=== PATIENT | female | born 1960 | race Caucasian/White ===

== ENCOUNTER 2016-08-11 12:18 | Inpatient (IN) | payer MEDICAID ==
[2016-08-11 12:45] VITALS: BMI 26.3
[2016-08-11] MEDS ORDERED: PREVNAR 13 IM ONE ×2 (12:46→14:03)
[2016-08-11] MEDS ORDERED: AFLURIA IM ONE ×2 (12:46→14:03)
[2016-08-11] MEDS ORDERED: LEVAQUIN PREMIX IV 500 MG 500 MG/100 ML BAG IV ONE (13:31)
[2016-08-11] MEDS: NS 1000 ML 1,000 ML IV SCH (14:10)
[2016-08-11] MEDS ORDERED: PROVENTIL NEB TX 0.083% 2.5MG/ 3ML NEB PRN (14:43)
[2016-08-11] MEDS: KLONOPIN TAB 0.5 MG PO SCH ×2 (14:53→21:31)
[2016-08-11] MEDS: MORPHINE SULFATE INJ 2 MG IVP PRN ×2 (14:53→21:29)
[2016-08-11] MEDS: PLAVIX PO SCH ×2 (14:53→14:58)
[2016-08-11 14:58] LABS: BASOPHILS % (AUTO) 0.3 % (0.2-1.0); HEMOGLOBIN 14.2 g/dL (12.0-16.0); LYMPHOCYTES # (AUTO) 3.3 X10^3/uL (1.3-2.9)
[2016-08-11 15:00] LABS: BASOPHILS # (AUTO) 0.1 X10^3/uL (0.0-0.1); HEMATOCRIT 42.5 % (36.0-47.0); LYMPHOCYTES % (AUTO) 19.3 % (21.0-51.0); MEAN CORPUSCULAR HEMOGLOBIN 30.7 pg (27.0-34.0); MEAN CORPUSCULAR HGB CONC 33.5 g/dL (33.0-35.0); MEAN CORPUSCULAR VOLUME 91.8 fL (80.0-100.0); MEAN PLATELET VOLUME 8.2 fL (7.4-11.0); MONOCYTES # (AUTO) 1.5 x10^3/uL (0.3-0.8); MONOCYTES % (AUTO) 8.6 % (0.0-13.0); NEUTROPHILS # (AUTO) 12.2 x10^3/uL (2.2-4.8); NEUTROPHILS % (AUTO) 71.8 % (42.0-75.0); PLATELET COUNT 396 X10^3/uL (150.0-450.0); RED BLOOD COUNT 4.63 X10^6/uL (3.5-5.4); RED CELL DISTRIBUTION WIDTH 13.3 % (11.6-16.5)
[2016-08-11 15:17] LABS: ALANINE AMINOTRANSFERASE 22 Units/L (12-78); ALBUMIN 4.4 g/dL (3.4-5.0); ALKALINE PHOSPHATASE 89 Units/L (46-116); ASPARTATE AMINO TRANSFERASE 19 Units/L (15-37); BLOOD UREA NITROGEN 16 mg/dL (7-18); CALCIUM 9.9 mg/dL (8.5-10.1); CARBON DIOXIDE 25.7 mmol/L (21-32); CHLORIDE 98 mmol/L (98-107); COR NA(FOR HYPERGLY) 140 mmol/L (136-145); CREATININE 1.18 mg/dL (0.55-1.02); GLUCOSE 142 mg/dL (65-99); SODIUM 139 mmol/L (136-145); TOTAL PROTEIN 9.2 g/dL (6.4-8.2); eGFR BLACK RACES > 60 (>60); eGFR NON BLACK RACES 50 (>60)
--- NOTE | 2016-08-11 17:30 | DR.H&P ---
H&P - History & Physical for Day of: H&P Date: 08/11/16 - Chief Complaint Chief Complaint: WEAKNESS, SOB, COUGHING, N/V - Allergies Allergies/Adverse Reactions: Allergies Allergy/AdvReac Type Severity Reaction Status Date / Time Penicillins Allergy Verified 08/10/16 14:34 - History of Present Illness History of Present Illness: 55 WF DIRECT ADMIT FROM DR REDMAN OFFICE AFTER CO N/V, SOB, BRONCHITIS LIKE SYMPTOMS FOR SEVERAL DAYS. PT WENT TO ER LAST PM HAD CT CHEST AND LABS. PT WBC WERE 14K IN ED LAST PM. PT HAS PMH OF COPD, HTN, CAD, DM AND RENAL INSUFF. PT WAS ADMITTED FOR EVALUATION AND TREATMENT FOR FAILED OP TREATMENT OF AB/COPD EXACERBATION. PLAN TO OBTAIN LABS, BLOOD AND SPUTUM CULTURES, IV ATBX THERAPY, RESP THERAPY AND MONITOR. PT HAD RENAL MASS SEEN ON CTA DONE ON 08/10/2016, PLAN TO CT ABD PELVIS Q AM. PT STATES SHE "HAS HAD MASS FOR SEVERAL YEARS, WAS TOLD IS WASNT CANCER" PT DOESNT RECALL BIOPSY OR PHYSICIAN'S NAME. - Past Medical History Past Medical History: Arthritis, COPD, Depression, Diabetes, Dyslipidemia, GERD , Hypertension, Renal Disease - Past Surgical History Surgical History: HAIR WORKER Surgery - Family History Family Medical History: Diabetes Mellitus, Coronary Artery Disease, Hypertension - Social History Does patient currently use any type of tobacco product: Yes Have you used tobacco products in the last 12 months: Yes Type of Tobacco Use: Cigarettes How many years tobacco product used: 48 Does any household member use tobacco: No Alcohol Use: None Drug Use: None - Review of Systems Constitutional: Weakness Eyes: No Symptoms Reported ENT: No Symptoms Reported Respiratory: Cough, Shortness of Breath, Wheezing Cardiovascular: No Symptoms Reported Gastrointestinal: Nausea, Vomiting, Abdominal Pain Genitourinary: No Symptoms Reported Musculoskeletal: Back Pain Skin: No Symptoms Reported Neurological: No Symptoms Reported - Physical Exam Vital Signs: Pulse Rate [Bilateral Radial] 89 Pulse Rate 73 Respiratory Rate 16 Blood Pressure [Right Arm] 140/82 Blood Pressure [Left Arm] 150/83 Blood Pressure 192/87 O2 Sat by Pulse Oximetry 98 Oriented: Normal Eyes: Normal Ear: Normal Nose: Normal Throat: Normal Respiratory: Rhonchi Throughout Cardiovascular: Normal : Normal Auscultation: Bowel Sounds: Normal Palpation: Normal Tenderness: RLQ Skin: Normal Musculoskeletal: Back:Thoracic, Back:Lumbar Psychiatric: Depression Speech Pattern: Clear, Appropriate - Assessment/Plan (1) Acute bronchitis Qualifiers: Bronchitis organism: B Status: Acute Plan: ADMIT, CXR Q AM. IV LEVAQUIN, RESP THERAPY. O2, SPUTUM AND BC, IV HYDRATION (2) N&V (nausea and vomiting) Qualifiers: Vomiting type: V Vomiting Intractability: V Status: Acute Plan: NAUSEA CONTROL, IV HYDRAITON (3) Diabetes Qualifiers: Diabetes mellitus type: D Diabetes mellitus complication status: D Diabetes mellitus complication detail: D Diabetic retinopathy severity: D Proliferative retinopathy type: P Diabetes mellitus macular edema: D Diabetes mellitus oysterman insulin use: D Laterality: L Chronic kidney disease stage: C Status: Acute Plan: SSI, HOLD METFORMIN (4) HTN (hypertension) Qualifiers: Hypertension type: H Status: Acute Plan: CONTINUED HOME MEDS, MONITOR (5) Renal mass Status: Acute Plan: CT ABD/PELVIS WITH CONTRAST, REPEAT AM LABS
[2016-08-11] MEDS ORDERED: PATIENT'S HOME MEDICATION RESPIRATORY (Atorvastatin Calcium [Lipitor] 80 MG) PO SCH (21:00)
[2016-08-11] MEDS: PULMICORT NEB TX 0.5 MG NEB SCH (21:12)
[2016-08-11] MEDS: TOPROL XL PO SCH (21:37)
[2016-08-11 22:20] LABS: BILIRUBIN,URINE NEGATIVE (NEGATIVE); BLOOD/HEMOGLOBIN,URINE 2+ (NEGATIVE); GLUCOSE, URINE NEGATIVE (NEGATIVE); KETONES,URINE NEGATIVE (NEGATIVE); LEUKOCYTE ESTERASE ,URINE NEGATIVE (NEGATIVE); NITRITES,URINE NEGATIVE (NEGATIVE); PROTEIN,URINE 2+ (NEGATIVE); UROBILINOGEN,URINE NORMAL (NORMAL)
[2016-08-11 22:28] LABS: APPEARANCE,URINE CLEAR (CLEAR); COLOR,URINE DARK YELLOW (YELLOW)
[2016-08-11 22:29] LABS: AMORPHOUS SEDIMENT,UR TRACE /HPF (NEGATIVE); BACTERIA,URINE 1+ /HPF (NEGATIVE); MUCUS,URINE MODERATE /HPF (NEGATIVE); SQUAMOUS EPITHELIAL CELL,UR MODERATE /HPF (NEGATIVE)
[2016-08-12] MEDS: NS 1000 ML 1,000 ML IV SCH ×2 (03:30→15:57)
[2016-08-12 05:41] LABS: BASOPHILS # (AUTO) 0.1 X10^3/uL (0.0-0.1); BASOPHILS % (AUTO) 0.5 % (0.2-1.0); EOSINOPHILS # (AUTO) 0.1 x10^3/uL (0.0-0.2); EOSINOPHILS % (AUTO) 0.6 % (0.9-2.9); HEMATOCRIT 36.5 % (36.0-47.0); HEMOGLOBIN 12.1 g/dL (12.0-16.0); LYMPHOCYTES # (AUTO) 3.6 X10^3/uL (1.3-2.9); LYMPHOCYTES % (AUTO) 31.6 % (21.0-51.0); MEAN CORPUSCULAR HEMOGLOBIN 30.7 pg (27.0-34.0); MEAN CORPUSCULAR HGB CONC 33.1 g/dL (33.0-35.0); MEAN PLATELET VOLUME 8.1 fL (7.4-11.0); MONOCYTES # (AUTO) 1.2 x10^3/uL (0.3-0.8); MONOCYTES % (AUTO) 10.7 % (0.0-13.0); NEUTROPHILS # (AUTO) 6.5 x10^3/uL (2.2-4.8); NEUTROPHILS % (AUTO) 56.6 % (42.0-75.0); PLATELET COUNT 277 X10^3/uL (150.0-450.0); RED BLOOD COUNT 3.93 X10^6/uL (3.5-5.4); RED CELL DISTRIBUTION WIDTH 13.4 % (11.6-16.5); WHITE BLOOD COUNT 11.5 X10^3/uL (3.6-10.0)
[2016-08-12 05:51] LABS: ALANINE AMINOTRANSFERASE 19 Units/L (12-78); ALBUMIN 3.3 g/dL (3.4-5.0); ALKALINE PHOSPHATASE 70 Units/L (46-116); ASPARTATE AMINO TRANSFERASE 19 Units/L (15-37); BLOOD UREA NITROGEN 20 mg/dL (7-18); CALCIUM 8.8 mg/dL (8.5-10.1); CARBON DIOXIDE 25.6 mmol/L (21-32); CHLORIDE 106 mmol/L (98-107); COR CA(FOR HYPOALB) 9.4 mg/dL (8.5-10.1); CREATININE 0.97 mg/dL (0.55-1.02); GLUCOSE 82 mg/dL (65-99); SODIUM 143 mmol/L (136-145); TOTAL PROTEIN 7.1 g/dL (6.4-8.2); eGFR BLACK RACES > 60 (>60); eGFR NON BLACK RACES > 60 (>60)
--- NOTE | 2016-08-12 07:29 | RAD ---
HISTORY: Cough, congestion Study: Chest one view Comparison: August 10, 2016 Findings: The heart is enlarged. No congestive heart failure is noted. Mela are normal. The lungs are mildly h yperinflated but free of acute infiltrates. No pleural effusions are identified. The bony thorax is unremarkable. IMPRESSION: Cardiomegaly without congestive heart failure Lungs hyperinflated but free of acute infiltrates Reported By:
[2016-08-12] MEDS: MORPHINE SULFATE INJ 2 MG IVP PRN ×3 (08:41→21:21)
[2016-08-12] MEDS: CELEXA PO SCH (08:42)
[2016-08-12] MEDS: KLONOPIN TAB 0.5 MG PO SCH ×2 (08:42→23:02)
[2016-08-12] MEDS: TOPROL XL PO SCH ×2 (08:42→23:04)
[2016-08-12] MEDS: ZESTRIL TAB 10 MG PO SCH (08:42)
[2016-08-12] MEDS: PLAVIX PO SCH (08:42)
[2016-08-12] MEDS: PULMICORT NEB TX 0.5 MG NEB SCH ×2 (08:52→21:02)
[2016-08-12] MEDS: LIPITOR TAB 40 MG PO SCH ×2 (08:56→23:03)
[2016-08-12] MEDS: ZOFRAN INJ 4 MG VIAL IVP PRN ×2 (09:57→21:21)
[2016-08-12] MEDS: PHENERGAN INJ 25 MG IV PRN ×3 (10:47→23:22)
[2016-08-12] MEDS ORDERED: NS 25 ML IV 50 ML IV ONE (11:09)
--- NOTE | 2016-08-12 12:54 | CT ---
HISTORY: ABN CHEST CTA ON 08/10/16. REPORT RECOMMENDS RENAL PROTOCOL. CHARGE NURSE NAREN CINTRON STATES PT HAS BEEN SEEING AN COAT OPERATOR SINCE 2013 AND HE IS AWARE OF RENAL MASS. PER CHARGE NURSE THE PT WAS TOLD BY COAT OPERATOR IT IS NOTHING TO WORRY ABOUT/ PT STATES HAS N/V/ WEAKNESS Study: CT abdomen and pelvis with contrast Comparison: None Technique: Multiple axial images of the abdomen and pelvis were obtained from the lung bases to the pubic symph ysis with IV contrast. Oral contrast was administered. Dose reduction techniques including Automate d Exposure Control (AEC) and adjustment of mA and kV were utilized. Findings: The visualized portions of the lung bases are unremarkable. The spleen, pancreas, liver, and gallbl adder are unremarkable. There is a 1.7 cm right adrenal nodule that enhances on post-contrast images . This lesion measures 17 Hounsfield units on the precontrast exam and up to 109 Hounsfield units on the venous phase images. There is a right upper pole renal mass noted measuring 7.9 x 7.6 x 8.1 cm in transverse, AP, and craniocaudal dimensions. This mass is heterogeneous in density averaging 25 H elsel units on precontrast imaging and 30 Hounsfield units on the arterial phase suggesting mild enh ancement. There is very thin peripheral calcification. There are no definite solid nodular component s appreciated. The left kidney is normal. There are renal vascular calcifications bilaterally. No hy dronephrosis. No free intraperitoneal air. No evidence of intestinal obstruction or inflammation. Normal appendix. No free fluid. There are scattered colonic diverticula seen without evidence of acute inflammation. Oral contrast transits into the large bowel. The soft tissues and osseous structures are unremarkable. There is moderate to advanced atherosclero tic disease of the aorta and branch vessels. No pathologically enlarged lymph nodes are identified. The uterus is removed. Normal urinary bladder. IMPRESSION: 1. Right upper pole renal mass measuring 7.9 x 7.6 x 8.1 cm with very minimal enhancement seen on th e arterial phase images. No definite solid nodular components. There appears to be thin peripheral c alcification within the wall suggesting this could represent a complex cyst, at minimum a Bosniak gr gurwinder 3. Continued surveillance is recommended. 2. There is a 1.7 cm enhancing right adrenal nodule that is of indeterminate etiology. Continued att ention on followup is recommended. If clinically warranted, further characterization of this lesion with contrast enhanced MRI could be performed that could also serve to further characterize the reina l lesion. Reported By:
--- NOTE | 2016-08-12 13:25 | PCM.PROG ---
Progress Note - Progress Note for Day of Date: 08/19/16 - Subjective Subjective: COUGH IMPROVING, CONTINUED NAUSEA, WEAKNESS - Past Medical Family Social History Past Med/Fam/Surg Hx: No changes since H&P Allergies: Allergies Penicillins Allergy (Verified 08/10/16 14:34) - Review of Systems ROS: No change since H&P - Vital Signs and I&O's Vital Signs: Temperature 98.0 F Pulse Rate [Left Brachial] 72 Pulse Rate [Right Brachial] 68 Pulse Rate [Bilateral Radial] 89 Pulse Rate 72 Respiratory Rate 18 Blood Pressure [Right Arm] 128/66 Blood Pressure [Left Arm] 155/71 Blood Pressure 192/87 O2 Sat by Pulse Oximetry 98 Intake and Output: Intake & Output 08/10/16 08/11/16 08/12/16 08/13/16 11:59 11:59 11:59 11:59 Intake Total 1375 Output Total 300 Balance 1075 - Physical Exam Oriented: Normal Eyes: Normal Ear: Normal Nose: Normal Throat: Normal Respiratory: Wheezes Cardiovascular: Normal : Normal Auscultation: Bowel Sounds: Normal Tenderness: RLQ Skin: Normal Musculoskeletal: Back:Thoracic, Back:Lumbar Psychiatric: Depression Speech Pattern: Clear, Appropriate - Laboratory and Diagnostics Result Diagrams: 08/12/16 04:30 08/12/16 04:30 Labs: Laboratory WBC 11.5 X10^3/uL (3.6-10.0) H 08/12/16 04:30 RBC 3.93 X10^6/uL (3.5-5.4) 08/12/16 04:30 Hgb 12.1 g/dL (12.0-16.0) 08/12/16 04:30 Hct 36.5 % (36.0-47.0) 08/12/16 04:30 MCV 93.0 fL (80.0-100.0) 08/12/16 04:30 MCH 30.7 pg (27.0-34.0) 08/12/16 04:30 MCHC 33.1 g/dL (33.0-35.0) 08/12/16 04:30 RDW 13.4 % (11.6-16.5) 08/12/16 04:30 Plt Count 277 X10^3/uL (150.0-450.0) 08/12/16 04:30 MPV 8.1 fL (7.4-11.0) 08/12/16 04:30 Neut % 56.6 % (42.0-75.0) 08/12/16 04:30 Lymph % 31.6 % (21.0-51.0) 08/12/16 04:30 [place] % 10.7 % (0.0-13.0) 08/12/16 04:30 Eos % 0.6 % (0.9-2.9) L 08/12/16 04:30 Baso % 0.5 % (0.2-1.0) 08/12/16 04:30 Neut # 6.5 x10^3/uL (2.2-4.8) H 08/12/16 04:30 Lymph # 3.6 X10^3/uL (1.3-2.9) H 08/12/16 04:30 [place] # 1.2 x10^3/uL (0.3-0.8) H 08/12/16 04:30 Eos # 0.1 x10^3/uL (0.0-0.2) 08/12/16 04:30 Baso # 0.1 X10^3/uL (0.0-0.1) 08/12/16 04:30 Absolute Nucleated RBC 0.0 /100WBC 08/12/16 04:30 Sodium 143 mmol/L (136-145) 08/12/16 04:30 Corrected Sodium TNP 08/12/16 04:30 Potassium 3.6 mmol/L (3.5-5.1) 08/12/16 04:30 Chloride 106 mmol/L (98-107) 08/12/16 04:30 Carbon Dioxide 25.6 mmol/L (21-32) 08/12/16 04:30 BUN 20 mg/dL (7-18) H 08/12/16 04:30 Creatinine 0.97 mg/dL (0.55-1.02) 08/12/16 04:30 Est GFR (MDRD) Af Amer > 60 (>60) 08/12/16 04:30 Est GFR (MDRD) Non-Af > 60 (>60) 08/12/16 04:30 Glucose 82 mg/dL (65-99) 08/12/16 04:30 Calcium 8.8 mg/dL (8.5-10.1) 08/12/16 04:30 Corrected Calcium 9.4 mg/dL (8.5-10.1) 08/12/16 04:30 Total Bilirubin 0.50 mg/dL (0.2-1.0) 08/12/16 04:30 AST 19 Units/L (15-37) 08/12/16 04:30 ALT 19 Units/L (12-78) 08/12/16 04:30 Alkaline Phosphatase 70 Units/L (46-116) 08/12/16 04:30 Total Protein 7.1 g/dL (6.4-8.2) 08/12/16 04:30 Albumin 3.3 g/dL (3.4-5.0) L 08/12/16 04:30 Globulin 3.8 g/dL (2.5-4.5) 08/12/16 04:30 Albumin/Globulin Ratio 0.9 Ratio (1.1-2.1) L 08/12/16 04:30 Specimen Type Clean catch urine 08/11/16 22:08 Urine Color Dark yellow (YELLOW) 08/11/16 22:08 Urine Appearance Clear (CLEAR) 08/11/16 22:08 Urine pH 5.0 (5.0 - 8.0) 08/11/16 22:08 Ur Specific [place] 1.020 (1.000-1.030) 08/11/16 22:08 Urine Protein 2+ (NEGATIVE) 08/11/16 22:08 Urine Glucose (UA) Negative (NEGATIVE) 08/11/16 22:08 Urine Ketones Negative (NEGATIVE) 08/11/16 22:08 Urine Occult Blood 2+ (NEGATIVE) 08/11/16 22:08 Urine Nitrite Negative (NEGATIVE) 08/11/16 22:08 Urine Bilirubin Negative (NEGATIVE) 08/11/16 22:08 Urine Urobilinogen Normal (NORMAL) 08/11/16 22:08 Ur Leukocyte Esterase Negative (NEGATIVE) 08/11/16 22:08 Urine RBC 3-4 /HPF (NEGATIVE) 08/11/16 22:08 Urine WBC 0-1 /HPF (NEGATIVE) 08/11/16 22:08 Ur Squamous Epith Cells Moderate /HPF (NEGATIVE) 08/11/16 22:08 Amorphous Sediment Trace /HPF (NEGATIVE) 08/11/16 22:08 Urine Bacteria 1+ /HPF (NEGATIVE) 08/11/16 22:08 Urine Mucus Moderate /HPF (NEGATIVE) 08/11/16 22:08 Ur Culture Indicated? No/not indicated 08/11/16 22:08 - Plan (1) Acute bronchitis Status: Acute Qualifiers: Bronchitis organism: B Plan: IV LEVAQUIN, RESP THERAPY. O2, SPUTUM AND BC, IV HYDRATION ADN REPEAT AM LABS (2) N&V (nausea and vomiting) Status: Acute Qualifiers: Vomiting type: V Vomiting Intractability: V Plan: NAUSEA CONTROL, IV HYDRAITON (3) Diabetes Status: Acute Qualifiers: Diabetes mellitus type: D Diabetes mellitus complication status: D Diabetes mellitus complication detail: D Diabetic retinopathy severity: D Proliferative retinopathy type: P Diabetes mellitus macular edema: D Diabetes mellitus shelter insulin use: D Laterality: L Chronic kidney disease stage: C Plan: SSI, HOLD METFORMIN (4) HTN (hypertension) Status: Acute Qualifiers: Hypertension type: H Plan: CONTINUED HOME MEDS, MONITOR (5) Renal mass Status: Acute Plan: CT ABD/PELVIS WITH CONTRAST THIS AM, MRI WITH CONTRAST RECOMMENDED FOR ENHANCEMENT OF RENAL AND ADRENAL MASS. REPEAT AM LABS
[2016-08-13] MEDS: ZOFRAN INJ 4 MG VIAL IVP PRN (04:33)
[2016-08-13] MEDS: MORPHINE SULFATE INJ 2 MG IVP PRN ×3 (04:36→20:25)
[2016-08-13] MEDS: NS 1000 ML 1,000 ML IV SCH ×3 (04:38→21:54)
[2016-08-13 06:15] LABS: BASOPHILS % (AUTO) 0.3 % (0.2-1.0); EOSINOPHILS % (AUTO) 0.1 % (0.9-2.9); HEMOGLOBIN 14.2 g/dL (12.0-16.0); LYMPHOCYTES # (AUTO) 1.8 X10^3/uL (1.3-2.9); LYMPHOCYTES % (AUTO) 12.9 % (21.0-51.0); MEAN CORPUSCULAR HEMOGLOBIN 30.9 pg (27.0-34.0); MEAN CORPUSCULAR HGB CONC 33.7 g/dL (33.0-35.0); MEAN CORPUSCULAR VOLUME 91.7 fL (80.0-100.0); MEAN PLATELET VOLUME 8.5 fL (7.4-11.0); MONOCYTES # (AUTO) 1.2 x10^3/uL (0.3-0.8); MONOCYTES % (AUTO) 8.6 % (0.0-13.0); NEUTROPHILS # (AUTO) 10.7 x10^3/uL (2.2-4.8); NEUTROPHILS % (AUTO) 78.1 % (42.0-75.0); PLATELET COUNT 297 X10^3/uL (150.0-450.0); RED BLOOD COUNT 4.58 X10^6/uL (3.5-5.4); RED CELL DISTRIBUTION WIDTH 13.1 % (11.6-16.5); WHITE BLOOD COUNT 13.6 X10^3/uL (3.6-10.0)
[2016-08-13] MEDS: TOPROL XL PO SCH ×3 (06:27→21:48)
[2016-08-13] MEDS: PHENERGAN INJ 25 MG IV PRN ×3 (06:30→20:21)
[2016-08-13 06:34] LABS: ALANINE AMINOTRANSFERASE 20 Units/L (12-78); ALBUMIN 3.8 g/dL (3.4-5.0); ALKALINE PHOSPHATASE 87 Units/L (46-116); ASPARTATE AMINO TRANSFERASE 22 Units/L (15-37); BLOOD UREA NITROGEN 14 mg/dL (7-18); CARBON DIOXIDE 24.5 mmol/L (21-32); CHLORIDE 100 mmol/L (98-107); COR NA(FOR HYPERGLY) 140 mmol/L (136-145); CREATININE 0.68 mg/dL (0.55-1.02); GLUCOSE 152 mg/dL (65-99); SODIUM 139 mmol/L (136-145); TOTAL PROTEIN 8.2 g/dL (6.4-8.2); eGFR BLACK RACES > 60 (>60); eGFR NON BLACK RACES > 60 (>60)
[2016-08-13] MEDS: PULMICORT NEB TX 0.5 MG NEB SCH ×2 (08:25→21:09)
[2016-08-13] MEDS: ZESTRIL TAB 10 MG PO SCH (09:43)
[2016-08-13] MEDS: KLONOPIN TAB 0.5 MG PO SCH ×2 (09:44→21:48)
[2016-08-13] MEDS: CELEXA PO SCH (09:44)
[2016-08-13] MEDS: PLAVIX PO SCH (09:44)
--- NOTE | 2016-08-13 14:07 | PCM.PROG ---
Progress Note - Progress Note for Day of Date: 08/13/16 - Subjective Subjective: COUGH IMPROVING, CONTINUED NAUSEA, WEAKNESS. NPO FOR MRI THIS AM - Past Medical Family Social History Past Med/Fam/Surg Hx: No changes since H&P Allergies: Allergies Penicillins Allergy (Verified 08/10/16 14:34) - Review of Systems ROS: No change since H&P - Vital Signs and I&O's Vital Signs: Temperature 98.8 F Pulse Rate [Left Brachial] 110 Pulse Rate [Right Brachial] 68 Pulse Rate [Bilateral Radial] 89 Pulse Rate 78 Respiratory Rate 20 Blood Pressure [Right Arm] 192/108 Blood Pressure [Left Arm] 200/100 Blood Pressure 192/87 O2 Sat by Pulse Oximetry 99 Intake and Output: Intake & Output 08/11/16 08/12/16 08/13/16 08/14/16 11:59 11:59 11:59 11:59 Intake Total 1375 709 Output Total 300 Balance 1075 709 - Physical Exam Oriented: Normal Eyes: Normal Ear: Normal Nose: Normal Throat: Normal Respiratory: Wheezes Cardiovascular: Normal : Normal Auscultation: Bowel Sounds: Normal Tenderness: RLQ, Epigastric Skin: Normal Musculoskeletal: Back:Thoracic, Back:Lumbar Psychiatric: Depression Speech Pattern: Clear, Appropriate - Laboratory and Diagnostics Result Diagrams: 08/13/16 04:55 08/13/16 04:55 Labs: 08/11/16 13:55 Blood Blood Culture - Preliminary 08/11/16 13:55 Blood Blood Culture - Preliminary Laboratory WBC 13.6 X10^3/uL (3.6-10.0) H 08/13/16 04:55 RBC 4.58 X10^6/uL (3.5-5.4) 08/13/16 04:55 Hgb 14.2 g/dL (12.0-16.0) 08/13/16 04:55 Hct 42.0 % (36.0-47.0) 08/13/16 04:55 MCV 91.7 fL (80.0-100.0) 08/13/16 04:55 MCH 30.9 pg (27.0-34.0) 08/13/16 04:55 MCHC 33.7 g/dL (33.0-35.0) 08/13/16 04:55 RDW 13.1 % (11.6-16.5) 08/13/16 04:55 Plt Count 297 X10^3/uL (150.0-450.0) 08/13/16 04:55 MPV 8.5 fL (7.4-11.0) 08/13/16 04:55 Neut % 78.1 % (42.0-75.0) H 08/13/16 04:55 Lymph % 12.9 % (21.0-51.0) L 08/13/16 04:55 [place] % 8.6 % (0.0-13.0) 08/13/16 04:55 Eos % 0.1 % (0.9-2.9) L 08/13/16 04:55 Baso % 0.3 % (0.2-1.0) 08/13/16 04:55 Neut # 10.7 x10^3/uL (2.2-4.8) H 08/13/16 04:55 Lymph # 1.8 X10^3/uL (1.3-2.9) 08/13/16 04:55 [place] # 1.2 x10^3/uL (0.3-0.8) H 08/13/16 04:55 Eos # 0.0 x10^3/uL (0.0-0.2) 08/13/16 04:55 Baso # 0.0 X10^3/uL (0.0-0.1) 08/13/16 04:55 Absolute Nucleated RBC 0.0 /100WBC 08/13/16 04:55 Sodium 139 mmol/L (136-145) 08/13/16 04:55 Corrected Sodium 140 mmol/L (136-145) 08/13/16 04:55 Potassium 3.6 mmol/L (3.5-5.1) 08/13/16 04:55 Chloride 100 mmol/L (98-107) 08/13/16 04:55 Carbon Dioxide 24.5 mmol/L (21-32) 08/13/16 04:55 BUN 14 mg/dL (7-18) 08/13/16 04:55 Creatinine 0.68 mg/dL (0.55-1.02) 08/13/16 04:55 Est GFR (MDRD) Af Amer > 60 (>60) 08/13/16 04:55 Est GFR (MDRD) Non-Af > 60 (>60) 08/13/16 04:55 Glucose 152 mg/dL (65-99) H 08/13/16 04:55 Calcium 9.0 mg/dL (8.5-10.1) 08/13/16 04:55 Corrected Calcium TNP 08/13/16 04:55 Total Bilirubin 0.50 mg/dL (0.2-1.0) 08/13/16 04:55 AST 22 Units/L (15-37) 08/13/16 04:55 ALT 20 Units/L (12-78) 08/13/16 04:55 Alkaline Phosphatase 87 Units/L (46-116) 08/13/16 04:55 Total Protein 8.2 g/dL (6.4-8.2) 08/13/16 04:55 Albumin 3.8 g/dL (3.4-5.0) 08/13/16 04:55 Globulin 4.4 g/dL (2.5-4.5) 08/13/16 04:55 Albumin/Globulin Ratio 0.9 Ratio (1.1-2.1) L 08/13/16 04:55 Specimen Type Clean catch urine 08/11/16 22:08 Urine Color Dark yellow (YELLOW) 08/11/16 22:08 Urine Appearance Clear (CLEAR) 08/11/16 22:08 Urine pH 5.0 (5.0 - 8.0) 08/11/16 22:08 Ur Specific [place] 1.020 (1.000-1.030) 08/11/16 22:08 Urine Protein 2+ (NEGATIVE) 08/11/16 22:08 Urine Glucose (UA) Negative (NEGATIVE) 08/11/16 22:08 Urine Ketones Negative (NEGATIVE) 08/11/16 22:08 Urine Occult Blood 2+ (NEGATIVE) 08/11/16 22:08 Urine Nitrite Negative (NEGATIVE) 08/11/16 22:08 Urine Bilirubin Negative (NEGATIVE) 08/11/16 22:08 Urine Urobilinogen Normal (NORMAL) 08/11/16 22:08 Ur Leukocyte Esterase Negative (NEGATIVE) 08/11/16 22:08 Urine RBC 3-4 /HPF (NEGATIVE) 08/11/16 22:08 Urine WBC 0-1 /HPF (NEGATIVE) 08/11/16 22:08 Ur Squamous Epith Cells Moderate /HPF (NEGATIVE) 08/11/16 22:08 Amorphous Sediment Trace /HPF (NEGATIVE) 08/11/16 22:08 Urine Bacteria 1+ /HPF (NEGATIVE) 08/11/16 22:08 Urine Mucus Moderate /HPF (NEGATIVE) 08/11/16 22:08 Ur Culture Indicated? No/not indicated 08/11/16 22:08 - Plan (1) Acute bronchitis Status: Acute Qualifiers: Bronchitis organism: B Plan: IV LEVAQUIN, RESP THERAPY. O2, SPUTUM AND BC, IV HYDRATION ADN REPEAT AM LABS (2) N&V (nausea and vomiting) Status: Acute Qualifiers: Vomiting type: V Vomiting Intractability: V Plan: NAUSEA CONTROL, IV HYDRAITON (3) Diabetes Status: Acute Qualifiers: Diabetes mellitus type: D Diabetes mellitus complication status: D Diabetes mellitus complication detail: D Diabetic retinopathy severity: D Proliferative retinopathy type: P Diabetes mellitus macular edema: D Diabetes mellitus fdc insulin use: D Laterality: L Chronic kidney disease stage: C Plan: SSI, HOLD METFORMIN (4) HTN (hypertension) Status: Acute Qualifiers: Hypertension type: H Plan: CONTINUED HOME MEDS, MONITOR (5) Renal mass Status: Acute Plan: CT ABD/PELVIS ON PT CHART, MRI WITH CONTRAST RECOMMENDED FOR ENHANCEMENT OF RENAL AND ADRENAL MASS. REPEAT AM LABS
[2016-08-13] MEDS: PROTONIX INJ 40 MG VIAL IVP SCH (16:43)
[2016-08-13] MEDS: LIPITOR TAB 40 MG PO SCH (21:48)
[2016-08-14] MEDS: MORPHINE SULFATE INJ 2 MG IVP PRN ×3 (05:41→16:56)
[2016-08-14] MEDS: PHENERGAN INJ 25 MG IV PRN ×3 (05:41→16:53)
[2016-08-14] MEDS: PULMICORT NEB TX 0.5 MG NEB SCH ×2 (08:54→20:40)
--- NOTE | 2016-08-14 09:14 | MRI ---
MRI OF THE ABDOMEN WITHOUT AND WITH IV CONTRAST Clinical indication: Renal mass Procedure: Multiplanar multi sequence MRI of the abdomen were obtained with and without the administ ration of intravenous contrast according to standard departmental protocol. Contrast: 15 cc of Omniscan rule. Comparisons: CT abdomen pelvis 08/12/2016, 09/14/2015 Findings: MRI of the abdomen without contrast: No significant iron or fat deposition in the liver or spleen. N o significant ascites. MRI of the abdomen with contrast: Liver and spleen are normal in appearance. No focal lesions. Gall bladder is present. No gallstones. No filling defects within the common bile duct. No ductal dilata tion. Pancreas demonstrates normal T1 signal. No pancreatic masses. 1.4 cm right adrenal nodule on s eries 901, image 12 demonstrates mild loss of signal on out of phase imaging. Kidneys demonstrate no rmal cortical medullary differentiation. No hydronephrosis. Redemonstrated arising from the upper po le the right kidney is a intrinsically T1 bright mass measuring 8.6 x 7.8 cm. This is heterogeneous on T-tube. No enhancement. Visualized bowel is unremarkable. No suspicious lymph nodes. Impression: 1. Large T1 bright lesion arising from the upper pole the right kidney. Lack of contrast enhancement suggests benign etiology. Given comparison with CT, differential considerations would be complex, h ighly proteinaceous cyst versus old hemorrhagic cyst with peripheral clots. As this has not changed in size since 09/14/2015, a benign etiology is suspected. This could be followed with ultrasound in 6 months. Reported By:
[2016-08-14] MEDS: TOPROL XL PO SCH ×2 (09:28→21:55)
[2016-08-14] MEDS: PROTONIX INJ 40 MG VIAL IVP SCH (09:28)
[2016-08-14] MEDS: CELEXA PO SCH (09:28)
[2016-08-14] MEDS: ZESTRIL TAB 10 MG PO SCH (09:28)
[2016-08-14] MEDS: KLONOPIN TAB 0.5 MG PO SCH ×2 (09:29→21:55)
[2016-08-14] MEDS: NS 1000 ML 1,000 ML IV SCH (09:29)
[2016-08-14] MEDS: PLAVIX PO SCH (09:29)
[2016-08-14] MEDS: ZOFRAN INJ 4 MG VIAL IVP PRN ×2 (09:38→19:54)
[2016-08-14 17:48] LABS: AMYLASE 74 Units/L (25-115); LIPASE 112 Units/L (73-393)
[2016-08-14] MEDS: LIPITOR TAB 40 MG PO SCH (21:55)
[2016-08-15] MEDS: MORPHINE SULFATE INJ 2 MG IVP PRN ×2 (00:03→06:39)
[2016-08-15] MEDS: PHENERGAN INJ 25 MG IV PRN ×4 (00:03→21:40)
[2016-08-15] MEDS: NS 1000 ML 1,000 ML IV SCH ×2 (00:11→04:33)
[2016-08-15 06:14] LABS: BASOPHILS # (AUTO) 0.1 X10^3/uL (0.0-0.1); BASOPHILS % (AUTO) 0.5 % (0.2-1.0); EOSINOPHILS # (AUTO) 0.1 x10^3/uL (0.0-0.2); EOSINOPHILS % (AUTO) 0.6 % (0.9-2.9); HEMATOCRIT 40.7 % (36.0-47.0); HEMOGLOBIN 13.7 g/dL (12.0-16.0); LYMPHOCYTES # (AUTO) 3.4 X10^3/uL (1.3-2.9); LYMPHOCYTES % (AUTO) 27.6 % (21.0-51.0); MEAN CORPUSCULAR HEMOGLOBIN 30.7 pg (27.0-34.0); MEAN CORPUSCULAR HGB CONC 33.6 g/dL (33.0-35.0); MEAN CORPUSCULAR VOLUME 91.3 fL (80.0-100.0); MEAN PLATELET VOLUME 8.3 fL (7.4-11.0); MONOCYTES # (AUTO) 1.1 x10^3/uL (0.3-0.8); MONOCYTES % (AUTO) 9.1 % (0.0-13.0); NEUTROPHILS # (AUTO) 7.6 x10^3/uL (2.2-4.8); NEUTROPHILS % (AUTO) 62.2 % (42.0-75.0); PLATELET COUNT 259 X10^3/uL (150.0-450.0); RED BLOOD COUNT 4.46 X10^6/uL (3.5-5.4); RED CELL DISTRIBUTION WIDTH 13.1 % (11.6-16.5); WHITE BLOOD COUNT 12.2 X10^3/uL (3.6-10.0)
[2016-08-15 06:35] LABS: ALANINE AMINOTRANSFERASE 21 Units/L (12-78); ALBUMIN 3.4 g/dL (3.4-5.0); ALKALINE PHOSPHATASE 75 Units/L (46-116); ASPARTATE AMINO TRANSFERASE 16 Units/L (15-37); BLOOD UREA NITROGEN 13 mg/dL (7-18); CALCIUM 8.6 mg/dL (8.5-10.1); CARBON DIOXIDE 26.7 mmol/L (21-32); CHLORIDE 104 mmol/L (98-107); COR NA(FOR HYPERGLY) 140 mmol/L (136-145); CREATININE 0.71 mg/dL (0.55-1.02); GLUCOSE 113 mg/dL (65-99); SODIUM 140 mmol/L (136-145); TOTAL PROTEIN 7.1 g/dL (6.4-8.2); eGFR BLACK RACES > 60 (>60); eGFR NON BLACK RACES > 60 (>60)
[2016-08-15] MEDS ORDERED: POTASSIUM CHLORIDE LIQ 20 MEQ UDC PO PRN (07:07)
[2016-08-15] MEDS ORDERED: K-LYTE EFFERVESCENT PO PRN (07:07)
[2016-08-15] MEDS: K-RIDER 10 MEQ/NS 100 ML 10 MEQ/100 ML BAG IV PRN ×3 (07:53→13:28)
[2016-08-15] MEDS: PULMICORT NEB TX 0.5 MG NEB SCH ×2 (09:25→20:31)
[2016-08-15] MEDS: PERCOCET TAB 5/325 MG PO PRN ×3 (12:02→23:54)
[2016-08-15] MEDS: KLONOPIN TAB 0.5 MG PO SCH ×2 (14:33→21:34)
[2016-08-15] MEDS: CELEXA PO SCH (14:33)
[2016-08-15] MEDS: TOPROL XL PO SCH ×2 (14:33→21:34)
[2016-08-15] MEDS: PLAVIX PO SCH (14:34)
[2016-08-15] MEDS: ZESTRIL TAB 10 MG PO SCH (14:34)
[2016-08-15] MEDS: PROTONIX INJ 40 MG VIAL IVP SCH (14:34)
--- NOTE | 2016-08-15 14:55 | PCM.PROG ---
Progress Note - Progress Note for Day of Date: 08/14/16 - Subjective Subjective: WHEEZING AND CHEST CONGESTION MUCH IMPROVED, CONTINUED NAUSEA, WEAKNESS, PLAN FOR HIDA SCAN ON THURSDAY. CONTINUE ADVANCE DIET TOLERATED. - Past Medical Family Social History Past Med/Fam/Surg Hx: No changes since H&P Allergies: Allergies Penicillins Allergy (Verified 08/10/16 14:34) - Review of Systems ROS: No change since H&P - Vital Signs and I&O's Vital Signs: Temperature 98.5 F Pulse Rate [Left Brachial] 81 Pulse Rate [Right Brachial] 68 Pulse Rate [Bilateral Radial] 89 Pulse Rate 70 Respiratory Rate 20 Blood Pressure [Right Arm] 176/94 Blood Pressure [Left Arm] 175/90 Blood Pressure 192/87 O2 Sat by Pulse Oximetry 100 Intake and Output: Intake & Output 08/13/16 08/14/16 08/15/16 08/16/16 11:59 11:59 11:59 11:59 Intake Total 709 1209 2037 Balance 709 1209 2037 - Physical Exam Oriented: Normal Eyes: Normal Ear: Normal Nose: Normal Throat: Normal Respiratory: Wheezes Cardiovascular: Normal : Normal Auscultation: Bowel Sounds: Normal Tenderness: RLQ, Epigastric Skin: Normal Musculoskeletal: Back:Thoracic, Back:Lumbar Psychiatric: Depression Speech Pattern: Clear, Appropriate - Laboratory and Diagnostics Result Diagrams: 08/15/16 04:25 08/15/16 04:25 Labs: 08/11/16 13:55 Blood Blood Culture - Preliminary 08/11/16 13:55 Blood Blood Culture - Preliminary Laboratory WBC 12.2 X10^3/uL (3.6-10.0) H 08/15/16 04:25 RBC 4.46 X10^6/uL (3.5-5.4) 08/15/16 04:25 Hgb 13.7 g/dL (12.0-16.0) 08/15/16 04:25 Hct 40.7 % (36.0-47.0) 08/15/16 04:25 MCV 91.3 fL (80.0-100.0) 08/15/16 04:25 MCH 30.7 pg (27.0-34.0) 08/15/16 04:25 MCHC 33.6 g/dL (33.0-35.0) 08/15/16 04:25 RDW 13.1 % (11.6-16.5) 08/15/16 04:25 Plt Count 259 X10^3/uL (150.0-450.0) 08/15/16 04:25 MPV 8.3 fL (7.4-11.0) 08/15/16 04:25 Neut % 62.2 % (42.0-75.0) 08/15/16 04:25 Lymph % 27.6 % (21.0-51.0) 08/15/16 04:25 [place] % 9.1 % (0.0-13.0) 08/15/16 04:25 Eos % 0.6 % (0.9-2.9) L 08/15/16 04:25 Baso % 0.5 % (0.2-1.0) 08/15/16 04:25 Neut # 7.6 x10^3/uL (2.2-4.8) H 08/15/16 04:25 Lymph # 3.4 X10^3/uL (1.3-2.9) H 08/15/16 04:25 [place] # 1.1 x10^3/uL (0.3-0.8) H 08/15/16 04:25 Eos # 0.1 x10^3/uL (0.0-0.2) 08/15/16 04:25 Baso # 0.1 X10^3/uL (0.0-0.1) 08/15/16 04:25 Absolute Nucleated RBC 0.0 /100WBC 08/15/16 04:25 Sodium 140 mmol/L (136-145) 08/15/16 04:25 Corrected Sodium 140 mmol/L (136-145) 08/15/16 04:25 Potassium 2.9 mmol/L (3.5-5.1) L* 08/15/16 04:25 Chloride 104 mmol/L (98-107) 08/15/16 04:25 Carbon Dioxide 26.7 mmol/L (21-32) 08/15/16 04:25 BUN 13 mg/dL (7-18) 08/15/16 04:25 Creatinine 0.71 mg/dL (0.55-1.02) 08/15/16 04:25 Est GFR (MDRD) Af Amer > 60 (>60) 08/15/16 04:25 Est GFR (MDRD) Non-Af > 60 (>60) 08/15/16 04:25 Glucose 113 mg/dL (65-99) H 08/15/16 04:25 Calcium 8.6 mg/dL (8.5-10.1) 08/15/16 04:25 Corrected Calcium TNP 08/15/16 04:25 Total Bilirubin 0.70 mg/dL (0.2-1.0) 08/15/16 04:25 AST 16 Units/L (15-37) 08/15/16 04:25 ALT 21 Units/L (12-78) 08/15/16 04:25 Alkaline Phosphatase 75 Units/L (46-116) 08/15/16 04:25 Total Protein 7.1 g/dL (6.4-8.2) 08/15/16 04:25 Albumin 3.4 g/dL (3.4-5.0) 08/15/16 04:25 Globulin 3.7 g/dL (2.5-4.5) 08/15/16 04:25 Albumin/Globulin Ratio 0.9 Ratio (1.1-2.1) L 08/15/16 04:25 Amylase 74 Units/L (25-115) 08/14/16 17:25 Lipase 112 Units/L (73-393) 08/14/16 17:25 Specimen Type Clean catch urine 08/11/16 22:08 Urine Color Dark yellow (YELLOW) 08/11/16 22:08 Urine Appearance Clear (CLEAR) 08/11/16 22:08 Urine pH 5.0 (5.0 - 8.0) 08/11/16 22:08 Ur Specific [place] 1.020 (1.000-1.030) 08/11/16 22:08 Urine Protein 2+ (NEGATIVE) 08/11/16 22:08 Urine Glucose (UA) Negative (NEGATIVE) 08/11/16 22:08 Urine Ketones Negative (NEGATIVE) 08/11/16 22:08 Urine Occult Blood 2+ (NEGATIVE) 08/11/16 22:08 Urine Nitrite Negative (NEGATIVE) 08/11/16 22:08 Urine Bilirubin Negative (NEGATIVE) 08/11/16 22:08 Urine Urobilinogen Normal (NORMAL) 08/11/16 22:08 Ur Leukocyte Esterase Negative (NEGATIVE) 08/11/16 22:08 Urine RBC 3-4 /HPF (NEGATIVE) 08/11/16 22:08 Urine WBC 0-1 /HPF (NEGATIVE) 08/11/16 22:08 Ur Squamous Epith Cells Moderate /HPF (NEGATIVE) 08/11/16 22:08 Amorphous Sediment Trace /HPF (NEGATIVE) 08/11/16 22:08 Urine Bacteria 1+ /HPF (NEGATIVE) 08/11/16 22:08 Urine Mucus Moderate /HPF (NEGATIVE) 08/11/16 22:08 Ur Culture Indicated? No/not indicated 08/11/16 22:08 H. pylori IgG Antibody Negative (NEGATIVE) 08/14/16 17:25 - Plan (1) Acute bronchitis Status: Acute Qualifiers: Bronchitis organism: B Plan: IMPROVING, IV LEVAQUIN, RESP THERAPY. O2, SPUTUM AND BC COLLECTED, IV HYDRATION AND REPEAT AM LABS (2) RUQ abdominal pain Status: Acute Plan: CONTINUE NAUSEA CONTROL, HIDA SCAN FOR THURSDAY (3) N&V (nausea and vomiting) Status: Acute Qualifiers: Vomiting type: V Vomiting Intractability: V Plan: NAUSEA CONTROL, IV HYDRAITON (4) Diabetes Status: Acute Qualifiers: Diabetes mellitus type: D Diabetes mellitus complication status: D Diabetes mellitus complication detail: D Diabetic retinopathy severity: D Proliferative retinopathy type: P Diabetes mellitus macular edema: D Diabetes mellitus jail insulin use: D Laterality: L Chronic kidney disease stage: C Plan: SSI, HOLD METFORMIN (5) HTN (hypertension) Status: Acute Qualifiers: Hypertension type: H Plan: CONTINUED HOME MEDS, MONITOR (6) Renal mass Status: Acute Plan: CT ABD/PELVIS ON PT CHART, MRI WITH CONTRAST ON CHART, SEE DR SANCHEZ ON OP BASIS FOR FOLLOW UP
[2016-08-15] MEDS ORDERED: LEVSIN/MAALOX/LIDOC VISC PO PRN (14:57)
--- NOTE | 2016-08-15 14:57 | PCM.PROG ---
Progress Note - Progress Note for Day of Date: 08/15/16 - Subjective Subjective: WHEEZING AND CHEST CONGESTION MUCH IMPROVED, CONTINUED NAUSEA, HYPOKALEMIA TODAY, AND ABLE TO DO hida SCAN THIS A.M. WAS SCHEDULED FOR thursday MORNING. cONTINUE iv HYDRATION AND POTASSIUM REPLACEMENT, PAIN AND NAUSEA CONTROL - Past Medical Family Social History Past Med/Fam/Surg Hx: No changes since H&P Allergies: Allergies Penicillins Allergy (Verified 08/10/16 14:34) - Review of Systems ROS: No change since H&P - Vital Signs and I&O's Vital Signs: Temperature 98.5 F Pulse Rate [Left Brachial] 81 Pulse Rate [Right Brachial] 68 Pulse Rate [Bilateral Radial] 89 Pulse Rate 70 Respiratory Rate 20 Blood Pressure [Right Arm] 176/94 Blood Pressure [Left Arm] 175/90 Blood Pressure 192/87 O2 Sat by Pulse Oximetry 100 Intake and Output: Intake & Output 08/13/16 08/14/16 08/15/16 08/16/16 11:59 11:59 11:59 11:59 Intake Total 709 1209 2037 Balance 709 1209 2037 - Physical Exam Oriented: Normal Eyes: Normal Ear: Normal Nose: Normal Throat: Normal Respiratory: Wheezes Cardiovascular: Normal : Normal Auscultation: Bowel Sounds: Normal Tenderness: RLQ, Epigastric Skin: Normal Musculoskeletal: Back:Thoracic, Back:Lumbar Psychiatric: Depression Speech Pattern: Clear, Appropriate - Laboratory and Diagnostics Result Diagrams: 08/15/16 04:25 08/15/16 04:25 Labs: 08/11/16 13:55 Blood Blood Culture - Preliminary 08/11/16 13:55 Blood Blood Culture - Preliminary Laboratory WBC 12.2 X10^3/uL (3.6-10.0) H 08/15/16 04:25 RBC 4.46 X10^6/uL (3.5-5.4) 08/15/16 04:25 Hgb 13.7 g/dL (12.0-16.0) 08/15/16 04:25 Hct 40.7 % (36.0-47.0) 08/15/16 04:25 MCV 91.3 fL (80.0-100.0) 08/15/16 04:25 MCH 30.7 pg (27.0-34.0) 08/15/16 04:25 MCHC 33.6 g/dL (33.0-35.0) 08/15/16 04:25 RDW 13.1 % (11.6-16.5) 08/15/16 04:25 Plt Count 259 X10^3/uL (150.0-450.0) 08/15/16 04:25 MPV 8.3 fL (7.4-11.0) 08/15/16 04:25 Neut % 62.2 % (42.0-75.0) 08/15/16 04:25 Lymph % 27.6 % (21.0-51.0) 08/15/16 04:25 [place] % 9.1 % (0.0-13.0) 08/15/16 04:25 Eos % 0.6 % (0.9-2.9) L 08/15/16 04:25 Baso % 0.5 % (0.2-1.0) 08/15/16 04:25 Neut # 7.6 x10^3/uL (2.2-4.8) H 08/15/16 04:25 Lymph # 3.4 X10^3/uL (1.3-2.9) H 08/15/16 04:25 [place] # 1.1 x10^3/uL (0.3-0.8) H 08/15/16 04:25 Eos # 0.1 x10^3/uL (0.0-0.2) 08/15/16 04:25 Baso # 0.1 X10^3/uL (0.0-0.1) 08/15/16 04:25 Absolute Nucleated RBC 0.0 /100WBC 08/15/16 04:25 Sodium 140 mmol/L (136-145) 08/15/16 04:25 Corrected Sodium 140 mmol/L (136-145) 08/15/16 04:25 Potassium 2.9 mmol/L (3.5-5.1) L* 08/15/16 04:25 Chloride 104 mmol/L (98-107) 08/15/16 04:25 Carbon Dioxide 26.7 mmol/L (21-32) 08/15/16 04:25 BUN 13 mg/dL (7-18) 08/15/16 04:25 Creatinine 0.71 mg/dL (0.55-1.02) 08/15/16 04:25 Est GFR (MDRD) Af Amer > 60 (>60) 08/15/16 04:25 Est GFR (MDRD) Non-Af > 60 (>60) 08/15/16 04:25 Glucose 113 mg/dL (65-99) H 08/15/16 04:25 Calcium 8.6 mg/dL (8.5-10.1) 08/15/16 04:25 Corrected Calcium TNP 08/15/16 04:25 Total Bilirubin 0.70 mg/dL (0.2-1.0) 08/15/16 04:25 AST 16 Units/L (15-37) 08/15/16 04:25 ALT 21 Units/L (12-78) 08/15/16 04:25 Alkaline Phosphatase 75 Units/L (46-116) 08/15/16 04:25 Total Protein 7.1 g/dL (6.4-8.2) 08/15/16 04:25 Albumin 3.4 g/dL (3.4-5.0) 08/15/16 04:25 Globulin 3.7 g/dL (2.5-4.5) 08/15/16 04:25 Albumin/Globulin Ratio 0.9 Ratio (1.1-2.1) L 08/15/16 04:25 Amylase 74 Units/L (25-115) 08/14/16 17:25 Lipase 112 Units/L (73-393) 08/14/16 17:25 Specimen Type Clean catch urine 08/11/16 22:08 Urine Color Dark yellow (YELLOW) 08/11/16 22:08 Urine Appearance Clear (CLEAR) 08/11/16 22:08 Urine pH 5.0 (5.0 - 8.0) 08/11/16 22:08 Ur Specific [place] 1.020 (1.000-1.030) 08/11/16 22:08 Urine Protein 2+ (NEGATIVE) 08/11/16 22:08 Urine Glucose (UA) Negative (NEGATIVE) 08/11/16 22:08 Urine Ketones Negative (NEGATIVE) 08/11/16 22:08 Urine Occult Blood 2+ (NEGATIVE) 08/11/16 22:08 Urine Nitrite Negative (NEGATIVE) 08/11/16 22:08 Urine Bilirubin Negative (NEGATIVE) 08/11/16 22:08 Urine Urobilinogen Normal (NORMAL) 08/11/16 22:08 Ur Leukocyte Esterase Negative (NEGATIVE) 08/11/16 22:08 Urine RBC 3-4 /HPF (NEGATIVE) 08/11/16 22:08 Urine WBC 0-1 /HPF (NEGATIVE) 08/11/16 22:08 Ur Squamous Epith Cells Moderate /HPF (NEGATIVE) 08/11/16 22:08 Amorphous Sediment Trace /HPF (NEGATIVE) 08/11/16 22:08 Urine Bacteria 1+ /HPF (NEGATIVE) 08/11/16 22:08 Urine Mucus Moderate /HPF (NEGATIVE) 08/11/16 22:08 Ur Culture Indicated? No/not indicated 08/11/16 22:08 H. pylori IgG Antibody Negative (NEGATIVE) 08/14/16 17:25 - Plan (1) Acute bronchitis Status: Acute Qualifiers: Bronchitis organism: B Plan: IMPROVING, IV LEVAQUIN, RESP THERAPY. O2, SPUTUM AND BC COLLECTED, IV HYDRATION AND REPEAT AM LABS (2) RUQ abdominal pain Status: Acute Plan: CONTINUE NAUSEA CONTROL, HIDA FOR THURSDAY (3) N&V (nausea and vomiting) Status: Acute Qualifiers: Vomiting type: V Vomiting Intractability: V Plan: NAUSEA CONTROL, IV HYDRAITON (4) Diabetes Status: Acute Qualifiers: Diabetes mellitus type: D Diabetes mellitus complication status: D Diabetes mellitus complication detail: D Diabetic retinopathy severity: D Proliferative retinopathy type: P Diabetes mellitus macular edema: D Diabetes mellitus termite inspector insulin use: D Laterality: L Chronic kidney disease stage: C Plan: SSI, HOLD METFORMIN (5) HTN (hypertension) Status: Acute Qualifiers: Hypertension type: H Plan: CONTINUED HOME MEDS, MONITOR (6) Renal mass Status: Acute Plan: CT ABD/PELVIS ON PT CHART, MRI WITH CONTRAST ON CHART, SEE DR SANCHEZ ON OP BASIS FOR FOLLOW UP (7) Hypokalemia Status: Acute Plan: K+ REPLACEMENT PROTOCOL
[2016-08-15] MEDS: ZOFRAN INJ 4 MG VIAL IVP PRN (18:05)
[2016-08-15] MEDS: LIPITOR TAB 40 MG PO SCH (21:34)
[2016-08-16] MEDS: PHENERGAN INJ 25 MG IV PRN ×3 (05:39→18:59)
[2016-08-16] MEDS: PERCOCET TAB 5/325 MG PO PRN ×4 (05:40→23:58)
[2016-08-16] MEDS: NS 1000 ML 1,000 ML IV SCH ×2 (06:07→09:33)
[2016-08-16] MEDS: PULMICORT NEB TX 0.5 MG NEB SCH ×2 (09:23→20:49)
[2016-08-16] MEDS: ZOFRAN INJ 4 MG VIAL IVP PRN ×2 (09:30→21:27)
[2016-08-16] MEDS: TOPROL XL PO SCH ×2 (09:33→21:27)
[2016-08-16] MEDS: ZESTRIL TAB 10 MG PO SCH (09:33)
[2016-08-16] MEDS: PROTONIX INJ 40 MG VIAL IVP SCH (09:33)
[2016-08-16] MEDS: KLONOPIN TAB 0.5 MG PO SCH ×2 (09:33→21:27)
[2016-08-16] MEDS: CELEXA PO SCH (09:33)
[2016-08-16] MEDS: PLAVIX PO SCH (09:34)
[2016-08-16] MEDS ORDERED: HUMULIN R SUBCUT PRN (13:00)
[2016-08-16] MEDS: SNACK - Diabetic Appropriate PO SCH (20:43)
[2016-08-16] MEDS: LIPITOR TAB 40 MG PO SCH (21:27)
[2016-08-16] MEDS: HUMULIN R SUBCUT PRN (21:42)
[2016-08-17] MEDS: NS 1000 ML 1,000 ML IV SCH ×3 (05:17→10:15)
[2016-08-17 06:32] LABS: BASOPHILS # (AUTO) 0.1 X10^3/uL (0.0-0.1); BASOPHILS % (AUTO) 0.4 % (0.2-1.0); EOSINOPHILS # (AUTO) 0.1 x10^3/uL (0.0-0.2); EOSINOPHILS % (AUTO) 0.4 % (0.9-2.9); HEMATOCRIT 39.2 % (36.0-47.0); HEMOGLOBIN 13.3 g/dL (12.0-16.0); LYMPHOCYTES # (AUTO) 3.7 X10^3/uL (1.3-2.9); LYMPHOCYTES % (AUTO) 25.3 % (21.0-51.0); MEAN CORPUSCULAR HEMOGLOBIN 30.8 pg (27.0-34.0); MEAN CORPUSCULAR VOLUME 90.5 fL (80.0-100.0); MEAN PLATELET VOLUME 8.4 fL (7.4-11.0); MONOCYTES # (AUTO) 1.4 x10^3/uL (0.3-0.8); MONOCYTES % (AUTO) 9.6 % (0.0-13.0); NEUTROPHILS # (AUTO) 9.4 x10^3/uL (2.2-4.8); NEUTROPHILS % (AUTO) 64.3 % (42.0-75.0); PLATELET COUNT 246 X10^3/uL (150.0-450.0); RED BLOOD COUNT 4.33 X10^6/uL (3.5-5.4); RED CELL DISTRIBUTION WIDTH 12.9 % (11.6-16.5); WHITE BLOOD COUNT 14.6 X10^3/uL (3.6-10.0)
[2016-08-17 06:52] LABS: ALANINE AMINOTRANSFERASE 18 Units/L (12-78); ALBUMIN 3.5 g/dL (3.4-5.0); ALKALINE PHOSPHATASE 83 Units/L (46-116); ASPARTATE AMINO TRANSFERASE 22 Units/L (15-37); BLOOD UREA NITROGEN 14 mg/dL (7-18); CALCIUM 8.5 mg/dL (8.5-10.1); CARBON DIOXIDE 27.7 mmol/L (21-32); CHLORIDE 102 mmol/L (98-107); COR NA(FOR HYPERGLY) 141 mmol/L (136-145); CREATININE 0.64 mg/dL (0.55-1.02); GLUCOSE 127 mg/dL (65-99); SODIUM 140 mmol/L (136-145); TOTAL PROTEIN 7.3 g/dL (6.4-8.2); eGFR BLACK RACES > 60 (>60); eGFR NON BLACK RACES > 60 (>60)
[2016-08-17] MEDS ORDERED: NS 250 ML IV 0 ML IV ONE (07:26)
[2016-08-17] MEDS: K-RIDER 10 MEQ/NS 100 ML 10 MEQ/100 ML BAG IV PRN ×6 (07:31→16:09)
[2016-08-17] MEDS: PERCOCET TAB 5/325 MG PO PRN ×3 (07:31→20:00)
[2016-08-17] MEDS: PLAVIX PO SCH (08:29)
[2016-08-17] MEDS: ZESTRIL TAB 10 MG PO SCH (08:29)
[2016-08-17] MEDS: ZOFRAN INJ 4 MG VIAL IVP PRN ×2 (08:30→10:15)
[2016-08-17] MEDS: CELEXA PO SCH (08:30)
[2016-08-17] MEDS: TOPROL XL PO SCH ×2 (08:30→21:50)
[2016-08-17] MEDS: PROTONIX INJ 40 MG VIAL IVP SCH ×2 (08:30→10:15)
[2016-08-17] MEDS: KLONOPIN TAB 0.5 MG PO SCH ×2 (08:30→21:50)
[2016-08-17] MEDS: PHENERGAN INJ 25 MG IV PRN ×2 (13:55→20:15)
[2016-08-17] MEDS ORDERED: CATAPRES TAB 0.1 MG PO PRN (16:28)
[2016-08-17] MEDS: MAGNESIUM SULFATE 1 GM/100 mL PREMIX 1 GM/100 ML BAG IV SCH ×2 (17:43→19:08)
[2016-08-17] MEDS: PULMICORT NEB TX 0.5 MG NEB SCH (21:44)
[2016-08-17] MEDS: SNACK - Diabetic Appropriate PO SCH ×2 (21:49→21:50)
[2016-08-17] MEDS: LIPITOR TAB 40 MG PO SCH (21:50)
[2016-08-18] MEDS: NS 1000 ML 1,000 ML IV SCH ×3 (00:54→15:45)
[2016-08-18 05:52] LABS: ALANINE AMINOTRANSFERASE 14 Units/L (12-78); ALBUMIN 3.4 g/dL (3.4-5.0); ALKALINE PHOSPHATASE 73 Units/L (46-116); ASPARTATE AMINO TRANSFERASE 22 Units/L (15-37); BLOOD UREA NITROGEN 16 mg/dL (7-18); CALCIUM 8.9 mg/dL (8.5-10.1); CARBON DIOXIDE 29.1 mmol/L (21-32); CHLORIDE 106 mmol/L (98-107); CREATININE 0.98 mg/dL (0.55-1.02); GLUCOSE 102 mg/dL (65-99); MAGNESIUM 2.6 mg/dL (1.7-2.9); SODIUM 144 mmol/L (136-145); TOTAL PROTEIN 7.1 g/dL (6.4-8.2); eGFR BLACK RACES > 60 (>60); eGFR NON BLACK RACES > 60 (>60)
[2016-08-18 05:53] LABS: BASOPHILS # (AUTO) 0.1 X10^3/uL (0.0-0.1); BASOPHILS % (AUTO) 0.6 % (0.2-1.0); EOSINOPHILS # (AUTO) 0.1 x10^3/uL (0.0-0.2); EOSINOPHILS % (AUTO) 1.2 % (0.9-2.9); HEMOGLOBIN 13.1 g/dL (12.0-16.0); LYMPHOCYTES # (AUTO) 4.6 X10^3/uL (1.3-2.9); LYMPHOCYTES % (AUTO) 43.1 % (21.0-51.0); MEAN CORPUSCULAR HGB CONC 33.5 g/dL (33.0-35.0); MEAN CORPUSCULAR VOLUME 92.5 fL (80.0-100.0); MEAN PLATELET VOLUME 8.5 fL (7.4-11.0); MONOCYTES # (AUTO) 0.9 x10^3/uL (0.3-0.8); MONOCYTES % (AUTO) 8.2 % (0.0-13.0); NEUTROPHILS # (AUTO) 5.1 x10^3/uL (2.2-4.8); NEUTROPHILS % (AUTO) 46.9 % (42.0-75.0); PLATELET COUNT 221 X10^3/uL (150.0-450.0); RED BLOOD COUNT 4.21 X10^6/uL (3.5-5.4); RED CELL DISTRIBUTION WIDTH 13.4 % (11.6-16.5); WHITE BLOOD COUNT 10.8 X10^3/uL (3.6-10.0)
--- NOTE | 2016-08-18 07:15 | RAD ---
HISTORY: Bronchitis, shortness of breath Study: Chest two-view Comparison: August 12, 2016, chest CT August 10, 2016 Findings: The heart is mildly enlarged. No congestive heart failure is noted. The lungs are mildly hyperinflat ed but free of acute alveolar infiltrates. No pleural effusions are identified. The bony thorax is u nremarkable with the exception of minimal loss of height of a mid thoracic vertebral body. IMPRESSION: Mild cardiomegaly without congestive heart failure Lungs mildly hyperinflated but clear Reported By:
[2016-08-18] MEDS: PULMICORT NEB TX 0.5 MG NEB SCH ×3 (08:27→21:40)
[2016-08-18] MEDS: ZOFRAN INJ 4 MG VIAL IVP PRN (09:27)
[2016-08-18] MEDS: PHENERGAN INJ 25 MG IV PRN (12:27)
[2016-08-18] MEDS: KLONOPIN TAB 0.5 MG PO SCH ×2 (12:35→20:50)
[2016-08-18] MEDS: TOPROL XL PO SCH (12:35)
[2016-08-18] MEDS: CELEXA PO SCH (14:37)
[2016-08-18] MEDS: K-DUR TAB 20 MEQ PO PRN (14:37)
[2016-08-18] MEDS: PROTONIX INJ 40 MG VIAL IVP SCH (14:37)
[2016-08-18] MEDS: ZESTRIL TAB 10 MG PO SCH (14:37)
[2016-08-18] MEDS: PERCOCET TAB 5/325 MG PO PRN ×2 (14:38→20:51)
[2016-08-18] MEDS: PLAVIX PO SCH (14:38)
--- NOTE | 2016-08-18 14:41 | NM ---
HIDA SCAN WITH EJECTION FRACTION. HISTORY: Nausea vomiting Comparison: None Technique: Multiple scintigraphic images of the abdomen were obtained the intravenous administration of 5.7 mCi of technetium labeled Choletec. Following distention of the gallbladder with radiotracer a 8 oz Ensure was given. An estimated gall bladder ejection fraction was calculated. Findings: Homogeneous uptake of radiotracer is seen throughout the liver. The intrabiliary ductal system is o bserved normally. The common hepatic and common bile duct appear unremarkable with normal biliary-b owel transit. The gallbladder is observed to fill normally. A decreased gallbladder ejection fraction of 2.2 (normal > 35%) is observed. IMPRESSION: 1. No evidence of cystic duct obstruction. 2. Decreased gallbladder ejection fraction of 2.2%. Reported By:
[2016-08-18] MEDS: LIPITOR TAB 40 MG PO SCH (20:50)
[2016-08-18] MEDS: SNACK - Diabetic Appropriate PO SCH (20:50)
[2016-08-19] MEDS: TOPROL XL PO SCH ×3 (01:42→20:18)
[2016-08-19 05:21] LABS: ALANINE AMINOTRANSFERASE 16 Units/L (12-78); ALBUMIN 3.2 g/dL (3.4-5.0); ALKALINE PHOSPHATASE 71 Units/L (46-116); AMYLASE 48 Units/L (25-115); ASPARTATE AMINO TRANSFERASE 17 Units/L (15-37); BLOOD UREA NITROGEN 17 mg/dL (7-18); CALCIUM 8.7 mg/dL (8.5-10.1); CHLORIDE 106 mmol/L (98-107); COR CA(FOR HYPOALB) 9.3 mg/dL (8.5-10.1); CREATININE 0.92 mg/dL (0.55-1.02); GLUCOSE 96 mg/dL (65-99); LIPASE 88 Units/L (73-393); SODIUM 142 mmol/L (136-145); TOTAL PROTEIN 6.8 g/dL (6.4-8.2); eGFR BLACK RACES > 60 (>60); eGFR NON BLACK RACES > 60 (>60)
[2016-08-19 05:25] LABS: BASOPHILS # (AUTO) 0.1 X10^3/uL (0.0-0.1); BASOPHILS % (AUTO) 0.7 % (0.2-1.0); EOSINOPHILS # (AUTO) 0.1 x10^3/uL (0.0-0.2); HEMATOCRIT 37.5 % (36.0-47.0); HEMOGLOBIN 12.6 g/dL (12.0-16.0); LYMPHOCYTES # (AUTO) 5.2 X10^3/uL (1.3-2.9); LYMPHOCYTES % (AUTO) 43.9 % (21.0-51.0); MEAN CORPUSCULAR HEMOGLOBIN 30.9 pg (27.0-34.0); MEAN CORPUSCULAR HGB CONC 33.5 g/dL (33.0-35.0); MEAN CORPUSCULAR VOLUME 92.3 fL (80.0-100.0); MEAN PLATELET VOLUME 8.7 fL (7.4-11.0); MONOCYTES % (AUTO) 8.3 % (0.0-13.0); NEUTROPHILS # (AUTO) 5.4 x10^3/uL (2.2-4.8); NEUTROPHILS % (AUTO) 46.1 % (42.0-75.0); PLATELET COUNT 204 X10^3/uL (150.0-450.0); RED BLOOD COUNT 4.06 X10^6/uL (3.5-5.4); RED CELL DISTRIBUTION WIDTH 13.1 % (11.6-16.5); WHITE BLOOD COUNT 11.7 X10^3/uL (3.6-10.0)
[2016-08-19] MEDS: NS 1000 ML 1,000 ML IV SCH ×3 (05:39→19:12)
[2016-08-19] MEDS: PERCOCET TAB 5/325 MG PO PRN ×3 (05:42→18:35)
--- NOTE | 2016-08-19 06:50 | RAD ---
HISTORY: COPD, bronchitis Study: Chest 1-view Comparison: August 18, 2016 Findings: The heart is mildly enlarged. No congestive heart failure is noted. The lungs are hyperinflated but free of acute infiltrates. No pleural effusions are identified. The bony thorax is unremarkable. IMPRESSION: Minimal cardiomegaly without congestive heart failure Lungs hyperinflated but clear, consistent with COPD Reported By:
[2016-08-19] MEDS: PULMICORT NEB TX 0.5 MG NEB SCH ×2 (08:30→20:56)
--- NOTE | 2016-08-19 08:49 | PCM.PROG ---
Progress Note - Progress Note for Day of Date: 08/18/16 - Subjective Subjective: CONTINUE CO UPPER ABDOMINAL PAIN, "BURNING" FOOD INTOLERANCE, VOMITING. PT NPO, PT TO HAVE HIDA SCAN THIS AM. HPI: PT ADMITTED WITH COPD EXACERBATION AND N/V. RESP CONDITION RESOLVED. CONTINUED TO N/V AND ABDOMINAL PAIN. PENDING GALLBLADDER STUDIES. - Past Medical Family Social History Past Med/Fam/Surg Hx: No changes since H&P Allergies: Allergies Penicillins Allergy (Verified 08/10/16 14:34) - Review of Systems ROS: No change since H&P - Vital Signs and I&O's Vital Signs: Temperature 97.9 F Pulse Rate [Left Brachial] 62 Pulse Rate [Right Brachial] 68 Pulse Rate [Bilateral Radial] 89 Pulse Rate 63 Respiratory Rate 20 Blood Pressure [Right Arm] 94/65 Blood Pressure [Left Arm] 105/58 Blood Pressure 192/87 O2 Sat by Pulse Oximetry 96 Intake and Output: Intake & Output 08/16/16 08/17/16 08/18/16 08/19/16 11:59 11:59 11:59 11:59 Intake Total 1658 1767 1429 580 Balance 1658 1767 1429 580 - Physical Exam Oriented: Normal Eyes: Normal Ear: Normal Nose: Normal Throat: Normal Respiratory: Diminished (MILD DIMINISHED BASES) Cardiovascular: Normal : Normal Auscultation: Bowel Sounds: Normal Tenderness: RLQ, Epigastric Skin: Normal Musculoskeletal: Back:Thoracic, Back:Lumbar Psychiatric: Depression Speech Pattern: Clear, Appropriate - Laboratory and Diagnostics Result Diagrams: 08/19/16 04:05 08/19/16 04:05 Labs: 08/11/16 13:55 Blood Blood Culture - Final 08/11/16 13:55 Blood Blood Culture - Final Laboratory WBC 11.7 X10^3/uL (3.6-10.0) H 08/19/16 04:05 RBC 4.06 X10^6/uL (3.5-5.4) 08/19/16 04:05 Hgb 12.6 g/dL (12.0-16.0) 08/19/16 04:05 Hct 37.5 % (36.0-47.0) 08/19/16 04:05 MCV 92.3 fL (80.0-100.0) 08/19/16 04:05 MCH 30.9 pg (27.0-34.0) 08/19/16 04:05 MCHC 33.5 g/dL (33.0-35.0) 08/19/16 04:05 RDW 13.1 % (11.6-16.5) 08/19/16 04:05 Plt Count 204 X10^3/uL (150.0-450.0) 08/19/16 04:05 MPV 8.7 fL (7.4-11.0) 08/19/16 04:05 Neut % 46.1 % (42.0-75.0) 08/19/16 04:05 Lymph % 43.9 % (21.0-51.0) 08/19/16 04:05 [place] % 8.3 % (0.0-13.0) 08/19/16 04:05 Eos % 1.0 % (0.9-2.9) 08/19/16 04:05 Baso % 0.7 % (0.2-1.0) 08/19/16 04:05 Neut # 5.4 x10^3/uL (2.2-4.8) H 08/19/16 04:05 Lymph # 5.2 X10^3/uL (1.3-2.9) H 08/19/16 04:05 [place] # 1.0 x10^3/uL (0.3-0.8) H 08/19/16 04:05 Eos # 0.1 x10^3/uL (0.0-0.2) 08/19/16 04:05 Baso # 0.1 X10^3/uL (0.0-0.1) 08/19/16 04:05 Absolute Nucleated RBC 0.1 /100WBC 08/19/16 04:05 Sodium 142 mmol/L (136-145) 08/19/16 04:05 Corrected Sodium TNP 08/19/16 04:05 Potassium 3.5 mmol/L (3.5-5.1) 08/19/16 04:05 Chloride 106 mmol/L (98-107) 08/19/16 04:05 Carbon Dioxide 27.0 mmol/L (21-32) 08/19/16 04:05 BUN 17 mg/dL (7-18) 08/19/16 04:05 Creatinine 0.92 mg/dL (0.55-1.02) 08/19/16 04:05 Est GFR (MDRD) Af Amer > 60 (>60) 08/19/16 04:05 Est GFR (MDRD) Non-Af > 60 (>60) 08/19/16 04:05 Glucose 96 mg/dL (65-99) 08/19/16 04:05 Calcium 8.7 mg/dL (8.5-10.1) 08/19/16 04:05 Corrected Calcium 9.3 mg/dL (8.5-10.1) 08/19/16 04:05 Magnesium 2.6 mg/dL (1.7-2.9) 08/18/16 04:40 Total Bilirubin 0.40 mg/dL (0.2-1.0) 08/19/16 04:05 AST 17 Units/L (15-37) 08/19/16 04:05 ALT 16 Units/L (12-78) 08/19/16 04:05 Alkaline Phosphatase 71 Units/L (46-116) 08/19/16 04:05 Total Protein 6.8 g/dL (6.4-8.2) 08/19/16 04:05 Albumin 3.2 g/dL (3.4-5.0) L 08/19/16 04:05 Globulin 3.6 g/dL (2.5-4.5) 08/19/16 04:05 Albumin/Globulin Ratio 0.9 Ratio (1.1-2.1) L 08/19/16 04:05 Amylase 48 Units/L (25-115) 08/19/16 04:05 Lipase 88 Units/L (73-393) 08/19/16 04:05 Specimen Type Clean catch urine 08/11/16 22:08 Urine Color Dark yellow (YELLOW) 08/11/16 22:08 Urine Appearance Clear (CLEAR) 08/11/16 22:08 Urine pH 5.0 (5.0 - 8.0) 08/11/16 22:08 Ur Specific [place] 1.020 (1.000-1.030) 08/11/16 22:08 Urine Protein 2+ (NEGATIVE) 08/11/16 22:08 Urine Glucose (UA) Negative (NEGATIVE) 08/11/16 22:08 Urine Ketones Negative (NEGATIVE) 08/11/16 22:08 Urine Occult Blood 2+ (NEGATIVE) 08/11/16 22:08 Urine Nitrite Negative (NEGATIVE) 08/11/16 22:08 Urine Bilirubin Negative (NEGATIVE) 08/11/16 22:08 Urine Urobilinogen Normal (NORMAL) 08/11/16 22:08 Ur Leukocyte Esterase Negative (NEGATIVE) 08/11/16 22:08 Urine RBC 3-4 /HPF (NEGATIVE) 08/11/16 22:08 Urine WBC 0-1 /HPF (NEGATIVE) 08/11/16 22:08 Ur Squamous Epith Cells Moderate /HPF (NEGATIVE) 08/11/16 22:08 Amorphous Sediment Trace /HPF (NEGATIVE) 08/11/16 22:08 Urine Bacteria 1+ /HPF (NEGATIVE) 08/11/16 22:08 Urine Mucus Moderate /HPF (NEGATIVE) 08/11/16 22:08 Ur Culture Indicated? No/not indicated 08/11/16 22:08 H. pylori IgG Antibody Negative (NEGATIVE) 08/14/16 17:25 - Plan (1) RUQ abdominal pain Status: Acute Plan: CONTINUE NAUSEA CONTROL, HIDA FOR THURSDAY (2) N&V (nausea and vomiting) Status: Acute Qualifiers: Vomiting type: V Vomiting Intractability: V Plan: NAUSEA CONTROL, IV HYDRAITON (3) Diabetes Status: Acute Qualifiers: Diabetes mellitus type: D Diabetes mellitus complication status: D Diabetes mellitus complication detail: D Diabetic retinopathy severity: D Proliferative retinopathy type: P Diabetes mellitus macular edema: D Diabetes mellitus mcc insulin use: D Laterality: L Chronic kidney disease stage: C Plan: SSI, HOLD METFORMIN (4) HTN (hypertension) Status: Acute Qualifiers: Hypertension type: H Plan: CONTINUED HOME MEDS, MONITOR (5) Renal mass Status: Acute Plan: CT ABD/PELVIS ON PT CHART, MRI WITH CONTRAST ON CHART, SEE DR SANCHEZ ON OP BASIS FOR FOLLOW UP (6) Hypokalemia Status: Acute Plan: K+ REPLACEMENT PROTOCOL (7) Acute bronchitis Status: Resolved Qualifiers: Bronchitis organism: B Plan: RESOLVED EXACERBATION, RESP THERAPY. O2
[2016-08-19] MEDS: CELEXA PO SCH (10:44)
[2016-08-19] MEDS: PROTONIX INJ 40 MG VIAL IVP SCH (10:44)
[2016-08-19] MEDS: ZESTRIL TAB 10 MG PO SCH (10:45)
[2016-08-19] MEDS: KLONOPIN TAB 0.5 MG PO SCH ×2 (10:45→20:18)
[2016-08-19] MEDS: PLAVIX PO SCH (10:45)
[2016-08-19] MEDS: LIPITOR TAB 40 MG PO SCH (20:18)
[2016-08-19] MEDS: SNACK - Diabetic Appropriate PO SCH (20:50)
[2016-08-19] MEDS: ZOFRAN INJ 4 MG VIAL IVP PRN (22:21)
[2016-08-19] MEDS: PHENERGAN INJ 25 MG IV PRN (23:14)
[2016-08-20] MEDS: PERCOCET TAB 5/325 MG PO PRN ×4 (00:41→20:27)
[2016-08-20 05:24] LABS: BASOPHILS # (AUTO) 0.1 X10^3/uL (0.0-0.1); BASOPHILS % (AUTO) 0.5 % (0.2-1.0); EOSINOPHILS % (AUTO) 0.1 % (0.9-2.9); HEMATOCRIT 39.1 % (36.0-47.0); HEMOGLOBIN 13.1 g/dL (12.0-16.0); LYMPHOCYTES # (AUTO) 1.6 X10^3/uL (1.3-2.9); LYMPHOCYTES % (AUTO) 9.6 % (21.0-51.0); MEAN CORPUSCULAR HEMOGLOBIN 30.6 pg (27.0-34.0); MEAN CORPUSCULAR HGB CONC 33.5 g/dL (33.0-35.0); MEAN CORPUSCULAR VOLUME 91.4 fL (80.0-100.0); MEAN PLATELET VOLUME 8.7 fL (7.4-11.0); MONOCYTES # (AUTO) 0.9 x10^3/uL (0.3-0.8); MONOCYTES % (AUTO) 5.3 % (0.0-13.0); NEUTROPHILS # (AUTO) 13.9 x10^3/uL (2.2-4.8); NEUTROPHILS % (AUTO) 84.5 % (42.0-75.0); PLATELET COUNT 232 X10^3/uL (150.0-450.0); RED BLOOD COUNT 4.27 X10^6/uL (3.5-5.4); RED CELL DISTRIBUTION WIDTH 12.9 % (11.6-16.5); WHITE BLOOD COUNT 16.5 X10^3/uL (3.6-10.0)
[2016-08-20 05:32] LABS: ALANINE AMINOTRANSFERASE 21 Units/L (12-78); ALBUMIN 3.6 g/dL (3.4-5.0); ALKALINE PHOSPHATASE 84 Units/L (46-116); ASPARTATE AMINO TRANSFERASE 36 Units/L (15-37); BLOOD UREA NITROGEN 9 mg/dL (7-18); CALCIUM 8.8 mg/dL (8.5-10.1); CHLORIDE 101 mmol/L (98-107); COR NA(FOR HYPERGLY) 139 mmol/L (136-145); CREATININE 0.68 mg/dL (0.55-1.02); GLUCOSE 158 mg/dL (65-99); SODIUM 138 mmol/L (136-145); TOTAL PROTEIN 7.8 g/dL (6.4-8.2); eGFR BLACK RACES > 60 (>60); eGFR NON BLACK RACES > 60 (>60)
[2016-08-20] MEDS: K-DUR TAB 20 MEQ PO PRN (06:26)
[2016-08-20] MEDS: PULMICORT NEB TX 0.5 MG NEB SCH ×2 (08:44→20:29)
[2016-08-20] MEDS: KLONOPIN TAB 0.5 MG PO SCH ×2 (09:47→20:26)
[2016-08-20] MEDS: CELEXA PO SCH (09:47)
[2016-08-20] MEDS: ZESTRIL TAB 10 MG PO SCH (09:47)
[2016-08-20] MEDS: PROTONIX INJ 40 MG VIAL IVP SCH (09:47)
[2016-08-20] MEDS: TOPROL XL PO SCH ×2 (09:47→20:26)
--- NOTE | 2016-08-20 18:04 | PCM.PROG ---
Progress Note - Progress Note for Day of Date: 08/19/16 - Subjective Subjective: CONTINUE CO UPPER ABDOMINAL PAIN, "BURNING" FOOD INTOLERANCE, VOMITING. PT NPO, PT HIDA SCAN ABNORMAL, HOLDING PLAVIX, DR DIXON CONSULTING WITH DR PRIETO, SURGEON. WILL RESTART BLAND DIET TOLERATED. REPEAT AM LABS, CONTINUE HYDRATION. HPI: PT ADMITTED WITH COPD EXACERBATION AND N/V. RESP CONDITION RESOLVED. CONTINUED TO N/V AND ABDOMINAL PAIN. PENDING LAP ALEXEY - Past Medical Family Social History Past Med/Fam/Surg Hx: No changes since H&P Allergies: Allergies Penicillins Allergy (Verified 08/10/16 14:34) - Review of Systems ROS: No change since H&P - Vital Signs and I&O's Vital Signs: Temperature 98.5 F Pulse Rate [Left Brachial] 91 Pulse Rate [Right Brachial] 110 Pulse Rate [Bilateral Radial] 89 Pulse Rate 95 Respiratory Rate 18 Blood Pressure [Right Arm] 178/100 Blood Pressure [Left Arm] 115/67 Blood Pressure 192/87 O2 Sat by Pulse Oximetry 95 Intake and Output: Intake & Output 08/18/16 08/19/16 08/20/16 08/21/16 11:59 11:59 11:59 11:59 Intake Total 8193 849 5907 300 Output Total 120 Balance 8083 603 7532 300 - Physical Exam Oriented: Normal Eyes: Normal Ear: Normal Nose: Normal Throat: Normal Respiratory: Diminished (MILD DIMINISHED BASES) Cardiovascular: Normal : Normal Auscultation: Bowel Sounds: Normal Tenderness: RLQ, Epigastric Skin: Normal Musculoskeletal: Back:Thoracic, Back:Lumbar Psychiatric: Depression Speech Pattern: Clear, Appropriate - Laboratory and Diagnostics Result Diagrams: 08/20/16 03:50 08/20/16 03:50 Labs: 08/11/16 13:55 Blood Blood Culture - Final 08/11/16 13:55 Blood Blood Culture - Final Laboratory WBC 16.5 X10^3/uL (3.6-10.0) H 08/20/16 03:50 RBC 4.27 X10^6/uL (3.5-5.4) 08/20/16 03:50 Hgb 13.1 g/dL (12.0-16.0) 08/20/16 03:50 Hct 39.1 % (36.0-47.0) 08/20/16 03:50 MCV 91.4 fL (80.0-100.0) 08/20/16 03:50 MCH 30.6 pg (27.0-34.0) 08/20/16 03:50 MCHC 33.5 g/dL (33.0-35.0) 08/20/16 03:50 RDW 12.9 % (11.6-16.5) 08/20/16 03:50 Plt Count 232 X10^3/uL (150.0-450.0) 08/20/16 03:50 MPV 8.7 fL (7.4-11.0) 08/20/16 03:50 Neut % 84.5 % (42.0-75.0) H 08/20/16 03:50 Lymph % 9.6 % (21.0-51.0) L 08/20/16 03:50 [place] % 5.3 % (0.0-13.0) 08/20/16 03:50 Eos % 0.1 % (0.9-2.9) L 08/20/16 03:50 Baso % 0.5 % (0.2-1.0) 08/20/16 03:50 Neut # 13.9 x10^3/uL (2.2-4.8) H 08/20/16 03:50 Lymph # 1.6 X10^3/uL (1.3-2.9) 08/20/16 03:50 [place] # 0.9 x10^3/uL (0.3-0.8) H 08/20/16 03:50 Eos # 0.0 x10^3/uL (0.0-0.2) 08/20/16 03:50 Baso # 0.1 X10^3/uL (0.0-0.1) 08/20/16 03:50 Absolute Nucleated RBC 0.0 /100WBC 08/20/16 03:50 Sodium 138 mmol/L (136-145) 08/20/16 03:50 Corrected Sodium 139 mmol/L (136-145) 08/20/16 03:50 Potassium 3.4 mmol/L (3.5-5.1) L 08/20/16 03:50 Chloride 101 mmol/L (98-107) 08/20/16 03:50 Carbon Dioxide 25.0 mmol/L (21-32) 08/20/16 03:50 BUN 9 mg/dL (7-18) 08/20/16 03:50 Creatinine 0.68 mg/dL (0.55-1.02) 08/20/16 03:50 Est GFR (MDRD) Af Amer > 60 (>60) 08/20/16 03:50 Est GFR (MDRD) Non-Af > 60 (>60) 08/20/16 03:50 Glucose 158 mg/dL (65-99) H 08/20/16 03:50 Calcium 8.8 mg/dL (8.5-10.1) 08/20/16 03:50 Corrected Calcium TNP 08/20/16 03:50 Magnesium 2.6 mg/dL (1.7-2.9) 08/18/16 04:40 Total Bilirubin 0.50 mg/dL (0.2-1.0) 08/20/16 03:50 AST 36 Units/L (15-37) 08/20/16 03:50 ALT 21 Units/L (12-78) 08/20/16 03:50 Alkaline Phosphatase 84 Units/L (46-116) 08/20/16 03:50 Total Protein 7.8 g/dL (6.4-8.2) 08/20/16 03:50 Albumin 3.6 g/dL (3.4-5.0) 08/20/16 03:50 Globulin 4.2 g/dL (2.5-4.5) 08/20/16 03:50 Albumin/Globulin Ratio 0.9 Ratio (1.1-2.1) L 08/20/16 03:50 Amylase 48 Units/L (25-115) 08/19/16 04:05 Lipase 88 Units/L (73-393) 08/19/16 04:05 Specimen Type Clean catch urine 08/11/16 22:08 Urine Color Dark yellow (YELLOW) 08/11/16 22:08 Urine Appearance Clear (CLEAR) 08/11/16 22:08 Urine pH 5.0 (5.0 - 8.0) 08/11/16 22:08 Ur Specific [place] 1.020 (1.000-1.030) 08/11/16 22:08 Urine Protein 2+ (NEGATIVE) 03/13/17 22:08 Urine Glucose (UA) Negative (NEGATIVE) 08/11/16 22:08 Urine Ketones Negative (NEGATIVE) 08/11/16 22:08 Urine Occult Blood 2+ (NEGATIVE) 08/11/16 22:08 Urine Nitrite Negative (NEGATIVE) 08/11/16 22:08 Urine Bilirubin Negative (NEGATIVE) 08/11/16 22:08 Urine Urobilinogen Normal (NORMAL) 08/11/16 22:08 Ur Leukocyte Esterase Negative (NEGATIVE) 08/11/16 22:08 Urine RBC 3-4 /HPF (NEGATIVE) 08/11/16 22:08 Urine WBC 0-1 /HPF (NEGATIVE) 08/11/16 22:08 Ur Squamous Epith Cells Moderate /HPF (NEGATIVE) 08/11/16 22:08 Amorphous Sediment Trace /HPF (NEGATIVE) 08/11/16 22:08 Urine Bacteria 1+ /HPF (NEGATIVE) 08/11/16 22:08 Urine Mucus Moderate /HPF (NEGATIVE) 08/11/16 22:08 Ur Culture Indicated? No/not indicated 08/11/16 22:08 H. pylori IgG Antibody Negative (NEGATIVE) 08/14/16 17:25 - Plan (1) Biliary dyskinesia Status: Acute Plan: HOLDING PLAVIX, POSSIBLE LAP ALEXEY ON THURSDAY. REPEAT AM LABS, BLAND DIET TOLERATED. NPO ON THURSDAY AFTER MID-NIGHT (2) N&V (nausea and vomiting) Status: Acute Qualifiers: Vomiting type: V Vomiting Intractability: V Plan: NAUSEA CONTROL, IV HYDRAITON (3) Diabetes Status: Acute Qualifiers: Diabetes mellitus type: D Diabetes mellitus complication status: D Diabetes mellitus complication detail: D Diabetic retinopathy severity: D Proliferative retinopathy type: P Diabetes mellitus macular edema: D Diabetes mellitus exterminator helper termite insulin use: D Laterality: L Chronic kidney disease stage: C Plan: SSI, HOLD METFORMIN (4) HTN (hypertension) Status: Acute Qualifiers: Hypertension type: H Plan: CONTINUED HOME MEDS, MONITOR (5) Renal mass Status: Acute Plan: CT ABD/PELVIS ON PT CHART, MRI WITH CONTRAST ON CHART, SEE DR SANCHEZ ON OP BASIS FOR FOLLOW UP (6) Hypokalemia Status: Acute Plan: K+ REPLACEMENT PROTOCOL (7) Acute bronchitis Status: Resolved Qualifiers: Bronchitis organism: B Plan: RESOLVED EXACERBATION, RESP THERAPY. O2
--- NOTE | 2016-08-20 18:04 | PCM.PROG ---
Progress Note - Progress Note for Day of Date: 08/20/16 - Subjective Subjective: CONTINUE CO UPPER ABDOMINAL PAIN, "BURNING" FOOD INTOLERANCE, VOMITING. PT NPO, PT HIDA SCAN ABNORMAL, HOLDING PLAVIX, DR DIXON CONSULTING WITH DR PRIETO, SURGEON. WILL RESTART BLAND DIET TOLERATED. REPEAT AM LABS, CONTINUE HYDRATION. HPI: PT ADMITTED WITH COPD EXACERBATION AND N/V. RESP CONDITION RESOLVED. CONTINUED TO N/V AND ABDOMINAL PAIN. PENDING LAP ALEXEY - Past Medical Family Social History Past Med/Fam/Surg Hx: No changes since H&P Allergies: Allergies Penicillins Allergy (Verified 08/10/16 14:34) - Review of Systems ROS: No change since H&P - Vital Signs and I&O's Vital Signs: Temperature 98.5 F Pulse Rate [Left Brachial] 91 Pulse Rate [Right Brachial] 110 Pulse Rate [Bilateral Radial] 89 Pulse Rate 95 Respiratory Rate 18 Blood Pressure [Right Arm] 178/100 Blood Pressure [Left Arm] 115/67 Blood Pressure 192/87 O2 Sat by Pulse Oximetry 95 Intake and Output: Intake & Output 08/18/16 08/19/16 08/20/16 08/21/16 11:59 11:59 11:59 11:59 Intake Total 2834 290 2132 300 Output Total 120 Balance 0902 063 9149 300 - Physical Exam Oriented: Normal Eyes: Normal Ear: Normal Nose: Normal Throat: Normal Respiratory: Diminished (MILD DIMINISHED BASES) Cardiovascular: Normal : Normal Auscultation: Bowel Sounds: Normal Tenderness: RLQ, Epigastric Skin: Normal Musculoskeletal: Back:Thoracic, Back:Lumbar Psychiatric: Depression Speech Pattern: Clear, Appropriate - Laboratory and Diagnostics Result Diagrams: 08/20/16 03:50 08/20/16 03:50 Labs: 08/11/16 13:55 Blood Blood Culture - Final 08/11/16 13:55 Blood Blood Culture - Final Laboratory WBC 16.5 X10^3/uL (3.6-10.0) H 08/20/16 03:50 RBC 4.27 X10^6/uL (3.5-5.4) 08/20/16 03:50 Hgb 13.1 g/dL (12.0-16.0) 08/20/16 03:50 Hct 39.1 % (36.0-47.0) 08/20/16 03:50 MCV 91.4 fL (80.0-100.0) 08/20/16 03:50 MCH 30.6 pg (27.0-34.0) 08/20/16 03:50 MCHC 33.5 g/dL (33.0-35.0) 08/20/16 03:50 RDW 12.9 % (11.6-16.5) 08/20/16 03:50 Plt Count 232 X10^3/uL (150.0-450.0) 08/20/16 03:50 MPV 8.7 fL (7.4-11.0) 08/20/16 03:50 Neut % 84.5 % (42.0-75.0) H 08/20/16 03:50 Lymph % 9.6 % (21.0-51.0) L 08/20/16 03:50 [place] % 5.3 % (0.0-13.0) 08/20/16 03:50 Eos % 0.1 % (0.9-2.9) L 08/20/16 03:50 Baso % 0.5 % (0.2-1.0) 08/20/16 03:50 Neut # 13.9 x10^3/uL (2.2-4.8) H 08/20/16 03:50 Lymph # 1.6 X10^3/uL (1.3-2.9) 08/20/16 03:50 [place] # 0.9 x10^3/uL (0.3-0.8) H 08/20/16 03:50 Eos # 0.0 x10^3/uL (0.0-0.2) 08/20/16 03:50 Baso # 0.1 X10^3/uL (0.0-0.1) 08/20/16 03:50 Absolute Nucleated RBC 0.0 /100WBC 08/20/16 03:50 Sodium 138 mmol/L (136-145) 08/20/16 03:50 Corrected Sodium 139 mmol/L (136-145) 08/20/16 03:50 Potassium 3.4 mmol/L (3.5-5.1) L 08/20/16 03:50 Chloride 101 mmol/L (98-107) 08/20/16 03:50 Carbon Dioxide 25.0 mmol/L (21-32) 08/20/16 03:50 BUN 9 mg/dL (7-18) 08/20/16 03:50 Creatinine 0.68 mg/dL (0.55-1.02) 08/20/16 03:50 Est GFR (MDRD) Af Amer > 60 (>60) 08/20/16 03:50 Est GFR (MDRD) Non-Af > 60 (>60) 08/20/16 03:50 Glucose 158 mg/dL (65-99) H 08/20/16 03:50 Calcium 8.8 mg/dL (8.5-10.1) 08/20/16 03:50 Corrected Calcium TNP 08/20/16 03:50 Magnesium 2.6 mg/dL (1.7-2.9) 08/18/16 04:40 Total Bilirubin 0.50 mg/dL (0.2-1.0) 08/20/16 03:50 AST 36 Units/L (15-37) 08/20/16 03:50 ALT 21 Units/L (12-78) 08/20/16 03:50 Alkaline Phosphatase 84 Units/L (46-116) 08/20/16 03:50 Total Protein 7.8 g/dL (6.4-8.2) 08/20/16 03:50 Albumin 3.6 g/dL (3.4-5.0) 08/20/16 03:50 Globulin 4.2 g/dL (2.5-4.5) 08/20/16 03:50 Albumin/Globulin Ratio 0.9 Ratio (1.1-2.1) L 08/20/16 03:50 Amylase 48 Units/L (25-115) 08/19/16 04:05 Lipase 88 Units/L (73-393) 08/19/16 04:05 Specimen Type Clean catch urine 08/11/16 22:08 Urine Color Dark yellow (YELLOW) 08/11/16 22:08 Urine Appearance Clear (CLEAR) 08/11/16 22:08 Urine pH 5.0 (5.0 - 8.0) 08/11/16 22:08 Ur Specific [place] 1.020 (1.000-1.030) 08/11/16 22:08 Urine Protein 2+ (NEGATIVE) 03/13/17 22:08 Urine Glucose (UA) Negative (NEGATIVE) 08/11/16 22:08 Urine Ketones Negative (NEGATIVE) 08/11/16 22:08 Urine Occult Blood 2+ (NEGATIVE) 08/11/16 22:08 Urine Nitrite Negative (NEGATIVE) 08/11/16 22:08 Urine Bilirubin Negative (NEGATIVE) 08/11/16 22:08 Urine Urobilinogen Normal (NORMAL) 08/11/16 22:08 Ur Leukocyte Esterase Negative (NEGATIVE) 08/11/16 22:08 Urine RBC 3-4 /HPF (NEGATIVE) 08/11/16 22:08 Urine WBC 0-1 /HPF (NEGATIVE) 08/11/16 22:08 Ur Squamous Epith Cells Moderate /HPF (NEGATIVE) 08/11/16 22:08 Amorphous Sediment Trace /HPF (NEGATIVE) 08/11/16 22:08 Urine Bacteria 1+ /HPF (NEGATIVE) 08/11/16 22:08 Urine Mucus Moderate /HPF (NEGATIVE) 08/11/16 22:08 Ur Culture Indicated? No/not indicated 08/11/16 22:08 H. pylori IgG Antibody Negative (NEGATIVE) 08/14/16 17:25 - Plan (1) Biliary dyskinesia Status: Acute Plan: HOLDING PLAVIX, POSSIBLE LAP ALEXEY ON THURSDAY. REPEAT AM LABS, BLAND DIET TOLERATED. NPO ON THURSDAY AFTER MID-NIGHT (2) N&V (nausea and vomiting) Status: Acute Qualifiers: Vomiting type: V Vomiting Intractability: V Plan: NAUSEA CONTROL, IV HYDRAITON (3) Diabetes Status: Acute Qualifiers: Diabetes mellitus type: D Diabetes mellitus complication status: D Diabetes mellitus complication detail: D Diabetic retinopathy severity: D Proliferative retinopathy type: P Diabetes mellitus macular edema: D Diabetes mellitus terminal gauger supervisor insulin use: D Laterality: L Chronic kidney disease stage: C Plan: SSI, HOLD METFORMIN (4) HTN (hypertension) Status: Acute Qualifiers: Hypertension type: H Plan: CONTINUED HOME MEDS, MONITOR (5) Renal mass Status: Acute Plan: CT ABD/PELVIS ON PT CHART, MRI WITH CONTRAST ON CHART, SEE DR SANCHEZ ON OP BASIS FOR FOLLOW UP (6) Hypokalemia Status: Acute Plan: K+ REPLACEMENT PROTOCOL (7) Acute bronchitis Status: Resolved Qualifiers: Bronchitis organism: B Plan: RESOLVED EXACERBATION, RESP THERAPY. O2
[2016-08-20] MEDS: HUMULIN R SUBCUT PRN ×2 (18:08→20:29)
[2016-08-20] MEDS: LIPITOR TAB 40 MG PO SCH (20:26)
[2016-08-20] MEDS: SNACK - Diabetic Appropriate PO SCH (20:28)
[2016-08-20] MEDS: NS 1000 ML 1,000 ML IV SCH ×2 (20:34→22:44)
[2016-08-20 20:48] LABS: BILIRUBIN,URINE NEGATIVE (NEGATIVE); BLOOD/HEMOGLOBIN,URINE 1+ (NEGATIVE); GLUCOSE, URINE NEGATIVE (NEGATIVE); KETONES,URINE NEGATIVE (NEGATIVE); LEUKOCYTE ESTERASE ,URINE NEGATIVE (NEGATIVE); NITRITES,URINE NEGATIVE (NEGATIVE); PROTEIN,URINE 2+ (NEGATIVE); UROBILINOGEN,URINE NORMAL (NORMAL)
[2016-08-20 21:00] LABS: APPEARANCE,URINE SLIGHTLY HAZY (CLEAR); COLOR,URINE YELLOW (YELLOW); RBC,URINE 0-3 /HPF (NEGATIVE)
[2016-08-20 21:01] LABS: BACTERIA,URINE 1+ /HPF (NEGATIVE); MUCUS,URINE MODERATE /HPF (NEGATIVE); SQUAMOUS EPITHELIAL CELL,UR MODERATE /HPF (NEGATIVE)
[2016-08-21] MEDS: PERCOCET TAB 5/325 MG PO PRN ×4 (04:14→22:02)
[2016-08-21 05:38] LABS: ALANINE AMINOTRANSFERASE 17 Units/L (12-78); ALBUMIN 2.9 g/dL (3.4-5.0); ALKALINE PHOSPHATASE 73 Units/L (46-116); ASPARTATE AMINO TRANSFERASE 23 Units/L (15-37); BLOOD UREA NITROGEN 14 mg/dL (7-18); CALCIUM 8.5 mg/dL (8.5-10.1); CARBON DIOXIDE 25.3 mmol/L (21-32); CHLORIDE 105 mmol/L (98-107); COR CA(FOR HYPOALB) 9.4 mg/dL (8.5-10.1); COR NA(FOR HYPERGLY) 142 mmol/L (136-145); CREATININE 0.81 mg/dL (0.55-1.02); GLUCOSE 140 mg/dL (65-99); SODIUM 141 mmol/L (136-145); TOTAL PROTEIN 6.8 g/dL (6.4-8.2); eGFR BLACK RACES > 60 (>60); eGFR NON BLACK RACES > 60 (>60)
[2016-08-21 06:25] LABS: BASOPHILS # (AUTO) 0.1 X10^3/uL (0.0-0.1); BASOPHILS % (AUTO) 0.4 % (0.2-1.0); EOSINOPHILS % (AUTO) 0.3 % (0.9-2.9); HEMOGLOBIN 12.1 g/dL (12.0-16.0); LYMPHOCYTES % (AUTO) 26.4 % (21.0-51.0); MEAN CORPUSCULAR HGB CONC 33.7 g/dL (33.0-35.0); MEAN PLATELET VOLUME 9.3 fL (7.4-11.0); MONOCYTES # (AUTO) 1.6 x10^3/uL (0.3-0.8); MONOCYTES % (AUTO) 10.9 % (0.0-13.0); NEUTROPHILS # (AUTO) 9.3 x10^3/uL (2.2-4.8); PLATELET COUNT 195 X10^3/uL (150.0-450.0); RED BLOOD COUNT 3.92 X10^6/uL (3.5-5.4); RED CELL DISTRIBUTION WIDTH 13.4 % (11.6-16.5); WHITE BLOOD COUNT 14.9 X10^3/uL (3.6-10.0)
--- NOTE | 2016-08-21 06:28 | RAD ---
HISTORY: Follow up bronchitis, COPD Study: Chest one view Comparison: August 19, 2016 Findings: The heart is mildly enlarged. No congestive heart failure is noted. The lungs are mildly hyperinflat ed but free of acute alveolar infiltrates. No pleural effusions are identified. The bony thorax is u nremarkable. IMPRESSION: No significant change from the prior examination Reported By:
[2016-08-21] MEDS: PULMICORT NEB TX 0.5 MG NEB SCH ×2 (09:34→20:29)
[2016-08-21] MEDS: TOPROL XL PO SCH ×2 (09:44→22:03)
[2016-08-21] MEDS: ZESTRIL TAB 10 MG PO SCH (09:44)
[2016-08-21] MEDS: KLONOPIN TAB 0.5 MG PO SCH ×2 (09:44→22:03)
[2016-08-21] MEDS: CELEXA PO SCH (09:44)
[2016-08-21] MEDS: PROTONIX INJ 40 MG VIAL IVP SCH (09:44)
[2016-08-21] MEDS: HUMULIN R SUBCUT PRN ×2 (13:34→17:01)
[2016-08-21] MEDS: NS 1000 ML 1,000 ML IV SCH ×2 (14:28→23:20)
--- NOTE | 2016-08-21 18:23 | PCM.PROG ---
Progress Note - Subjective Subjective: PT HIDA SCAN ABNORMAL, HOLDING PLAVIX, TOLERAING BLAND DIET, WILL BE NPO AFTER MIDNIGHT. DR DIXON CONSULTING WITH DR PRIETO, SURGEON FOR TENTATIVE LAP ALEXEY ON THURSDAY. REPEAT AM LABS, CONTINUE HYDRATION - Past Medical Family Social History Past Med/Fam/Surg Hx: No changes since H&P Allergies: Allergies Penicillins Allergy (Verified 08/10/16 14:34) - Review of Systems ROS: No change since H&P - Vital Signs and I&O's Vital Signs: Temperature 99.4 F Pulse Rate [Left Brachial] 75 Pulse Rate [Right Brachial] 79 Pulse Rate [Bilateral Radial] 89 Pulse Rate 95 Respiratory Rate 15 Blood Pressure [Right Arm] 137/64 Blood Pressure [Left Arm] 146/70 Blood Pressure 192/87 O2 Sat by Pulse Oximetry 95 Intake and Output: Intake & Output 08/19/16 08/20/16 08/21/16 08/22/16 11:59 11:59 11:59 11:59 Intake Total 580 1500 3016 680 Output Total 120 Balance 580 1380 3016 680 - Physical Exam Oriented: Normal Eyes: Normal Ear: Normal Nose: Normal Throat: Normal Respiratory: Diminished (MILD DIMINISHED BASES) Cardiovascular: Normal : Normal Auscultation: Bowel Sounds: Normal Tenderness: RLQ, Epigastric Skin: Normal Musculoskeletal: Back:Thoracic, Back:Lumbar Psychiatric: Depression Speech Pattern: Clear, Appropriate - Laboratory and Diagnostics Result Diagrams: 08/21/16 04:06 08/21/16 04:06 Labs: 08/11/16 13:55 Blood Blood Culture - Final 08/11/16 13:55 Blood Blood Culture - Final Laboratory WBC 14.9 X10^3/uL (3.6-10.0) H 08/21/16 04:06 RBC 3.92 X10^6/uL (3.5-5.4) 08/21/16 04:06 Hgb 12.1 g/dL (12.0-16.0) 08/21/16 04:06 Hct 36.0 % (36.0-47.0) 08/21/16 04:06 MCV 92.0 fL (80.0-100.0) 08/21/16 04:06 MCH 31.0 pg (27.0-34.0) 08/21/16 04:06 MCHC 33.7 g/dL (33.0-35.0) 08/21/16 04:06 RDW 13.4 % (11.6-16.5) 08/21/16 04:06 Plt Count 195 X10^3/uL (150.0-450.0) 08/21/16 04:06 MPV 9.3 fL (7.4-11.0) 08/21/16 04:06 Neut % 62.0 % (42.0-75.0) 08/21/16 04:06 Lymph % 26.4 % (21.0-51.0) 08/21/16 04:06 [place] % 10.9 % (0.0-13.0) 08/21/16 04:06 Eos % 0.3 % (0.9-2.9) L 08/21/16 04:06 Baso % 0.4 % (0.2-1.0) 08/21/16 04:06 Neut # 9.3 x10^3/uL (2.2-4.8) H 08/21/16 04:06 Lymph # 4.0 X10^3/uL (1.3-2.9) H 08/21/16 04:06 [place] # 1.6 x10^3/uL (0.3-0.8) H 08/21/16 04:06 Eos # 0.0 x10^3/uL (0.0-0.2) 08/21/16 04:06 Baso # 0.1 X10^3/uL (0.0-0.1) 08/21/16 04:06 Absolute Nucleated RBC 0.1 /100WBC 08/21/16 04:06 Sodium 141 mmol/L (136-145) 08/21/16 04:06 Corrected Sodium 142 mmol/L (136-145) 08/21/16 04:06 Potassium 3.2 mmol/L (3.5-5.1) L 08/21/16 04:06 Chloride 105 mmol/L (98-107) 08/21/16 04:06 Carbon Dioxide 25.3 mmol/L (21-32) 08/21/16 04:06 BUN 14 mg/dL (7-18) 08/21/16 04:06 Creatinine 0.81 mg/dL (0.55-1.02) 08/21/16 04:06 Est GFR (MDRD) Af Amer > 60 (>60) 08/21/16 04:06 Est GFR (MDRD) Non-Af > 60 (>60) 08/21/16 04:06 Glucose 140 mg/dL (65-99) H 08/21/16 04:06 Calcium 8.5 mg/dL (8.5-10.1) 08/21/16 04:06 Corrected Calcium 9.4 mg/dL (8.5-10.1) 08/21/16 04:06 Magnesium 2.6 mg/dL (1.7-2.9) 08/18/16 04:40 Total Bilirubin 0.40 mg/dL (0.2-1.0) 08/21/16 04:06 AST 23 Units/L (15-37) 08/21/16 04:06 ALT 17 Units/L (12-78) 08/21/16 04:06 Alkaline Phosphatase 73 Units/L (46-116) 08/21/16 04:06 Total Protein 6.8 g/dL (6.4-8.2) 08/21/16 04:06 Albumin 2.9 g/dL (3.4-5.0) L 08/21/16 04:06 Globulin 3.9 g/dL (2.5-4.5) 08/21/16 04:06 Albumin/Globulin Ratio 0.7 Ratio (1.1-2.1) L 08/21/16 04:06 Amylase 48 Units/L (25-115) 08/19/16 04:05 Lipase 88 Units/L (73-393) 08/19/16 04:05 Specimen Type Clean catch urine 08/20/16 20:35 Urine Color Yellow (YELLOW) 08/20/16 20:35 Urine Appearance Slightly hazy (CLEAR) 08/20/16 20:35 Urine pH 6.0 (5.0 - 8.0) 08/20/16 20:35 Ur Specific [place] 1.015 (1.000-1.030) 08/20/16 20:35 Urine Protein 2+ (NEGATIVE) 08/20/16 20:35 Urine Glucose (UA) Negative (NEGATIVE) 08/20/16 20:35 Urine Ketones Negative (NEGATIVE) 08/20/16 20:35 Urine Occult Blood 1+ (NEGATIVE) 08/20/16 20:35 Urine Nitrite Negative (NEGATIVE) 08/20/16 20:35 Urine Bilirubin Negative (NEGATIVE) 08/20/16 20:35 Urine Urobilinogen Normal (NORMAL) 08/20/16 20:35 Ur Leukocyte Esterase Negative (NEGATIVE) 08/20/16 20:35 Urine RBC 0-3 /HPF (NEGATIVE) 08/20/16 20:35 Urine WBC 0-3 /HPF (NEGATIVE) 08/20/16 20:35 Ur Squamous Epith Cells Moderate /HPF (NEGATIVE) 08/20/16 20:35 Amorphous Sediment Trace /HPF (NEGATIVE) 08/11/16 22:08 Urine Bacteria 1+ /HPF (NEGATIVE) 08/20/16 20:35 Urine Mucus Moderate /HPF (NEGATIVE) 08/20/16 20:35 Ur Culture Indicated? No/not indicated 08/20/16 20:35 H. pylori IgG Antibody Negative (NEGATIVE) 08/14/16 17:25 - Plan (1) Biliary dyskinesia Status: Acute Plan: HOLDING PLAVIX, POSSIBLE LAP ALEXEY ON THURSDAY. REPEAT AM LABS, BLAND DIET TOLERATED. NPO ON THURSDAY AFTER MID-NIGHT (2) N&V (nausea and vomiting) Status: Acute Qualifiers: Vomiting type: V Vomiting Intractability: V Plan: NAUSEA CONTROL, IV HYDRAITON (3) Diabetes Status: Acute Qualifiers: Diabetes mellitus type: D Diabetes mellitus complication status: D Diabetes mellitus complication detail: D Diabetic retinopathy severity: D Proliferative retinopathy type: P Diabetes mellitus macular edema: D Diabetes mellitus assistant terminal manager insulin use: D Laterality: L Chronic kidney disease stage: C Plan: SSI, HOLD METFORMIN (4) HTN (hypertension) Status: Acute Qualifiers: Hypertension type: H Plan: CONTINUED HOME MEDS, MONITOR (5) Renal mass Status: Acute Plan: CT ABD/PELVIS ON PT CHART, MRI WITH CONTRAST ON CHART, SEE DR SANCHEZ ON OP BASIS FOR FOLLOW UP (6) Hypokalemia Status: Acute Plan: K+ REPLACEMENT PROTOCOL (7) Acute bronchitis Status: Resolved Qualifiers: Bronchitis organism: B Plan: RESOLVED EXACERBATION, RESP THERAPY. O2
[2016-08-21] MEDS: K-DUR TAB 20 MEQ PO PRN (22:02)
[2016-08-21] MEDS: LIPITOR TAB 40 MG PO SCH (22:02)
[2016-08-21] MEDS: SNACK - Diabetic Appropriate PO SCH (22:03)
[2016-08-22] MEDS: PERCOCET TAB 5/325 MG PO PRN ×2 (04:10→10:38)
[2016-08-22 05:57] LABS: BASOPHILS % (AUTO) 0.3 % (0.2-1.0); EOSINOPHILS # (AUTO) 0.1 x10^3/uL (0.0-0.2); EOSINOPHILS % (AUTO) 0.9 % (0.9-2.9); HEMATOCRIT 32.6 % (36.0-47.0); HEMOGLOBIN 10.8 g/dL (12.0-16.0); LYMPHOCYTES # (AUTO) 3.1 X10^3/uL (1.3-2.9); LYMPHOCYTES % (AUTO) 25.4 % (21.0-51.0); MEAN CORPUSCULAR HEMOGLOBIN 30.8 pg (27.0-34.0); MEAN CORPUSCULAR HGB CONC 33.3 g/dL (33.0-35.0); MEAN CORPUSCULAR VOLUME 92.6 fL (80.0-100.0); MEAN PLATELET VOLUME 8.9 fL (7.4-11.0); MONOCYTES # (AUTO) 1.3 x10^3/uL (0.3-0.8); NEUTROPHILS # (AUTO) 7.5 x10^3/uL (2.2-4.8); NEUTROPHILS % (AUTO) 62.4 % (42.0-75.0); PLATELET COUNT 200 X10^3/uL (150.0-450.0); RED BLOOD COUNT 3.52 X10^6/uL (3.5-5.4); RED CELL DISTRIBUTION WIDTH 13.3 % (11.6-16.5); WHITE BLOOD COUNT 12.1 X10^3/uL (3.6-10.0)
[2016-08-22 06:00] LABS: ALANINE AMINOTRANSFERASE 16 Units/L (12-78); ALBUMIN 2.5 g/dL (3.4-5.0); ALKALINE PHOSPHATASE 77 Units/L (46-116); ASPARTATE AMINO TRANSFERASE 18 Units/L (15-37); BLOOD UREA NITROGEN 10 mg/dL (7-18); CALCIUM 8.1 mg/dL (8.5-10.1); CHLORIDE 106 mmol/L (98-107); COR CA(FOR HYPOALB) 9.3 mg/dL (8.5-10.1); COR NA(FOR HYPERGLY) 143 mmol/L (136-145); CREATININE 0.82 mg/dL (0.55-1.02); GLUCOSE 139 mg/dL (65-99); SODIUM 142 mmol/L (136-145); TOTAL PROTEIN 6.5 g/dL (6.4-8.2); eGFR BLACK RACES > 60 (>60); eGFR NON BLACK RACES > 60 (>60)
[2016-08-22] MEDS: NS 1000 ML 1,000 ML IV SCH (06:09)
[2016-08-22] MEDS: PULMICORT NEB TX 0.5 MG NEB SCH (08:27)
[2016-08-22] MEDS: TOPROL XL PO SCH (09:56)
[2016-08-22] MEDS: KLONOPIN TAB 0.5 MG PO SCH (09:56)
[2016-08-22] MEDS: CELEXA PO SCH (09:56)
[2016-08-22] MEDS: PROTONIX INJ 40 MG VIAL IVP SCH (09:56)
[2016-08-22] MEDS: ZESTRIL TAB 10 MG PO SCH (09:56)
[2016-08-22 12:53] VITALS: BP 132/97
--- NOTE | 2016-08-22 18:04 | PCM.DCPLAN ---
Discharge Summary - Admission Date Date of Admission: 08/11/16 - Discharge Date Discharge Date: 08/22/16 - Admission Diagnoses (1) Biliary dyskinesia Status: Acute (2) N&V (nausea and vomiting) Status: Acute (3) Diabetes Status: Acute (4) HTN (hypertension) Status: Acute (5) Renal mass Status: Acute (6) Hypokalemia Status: Acute (7) Acute bronchitis Status: Resolved - Discharge Diagnoses Discharge Diagnosis: SAME ADMISSION - Hospital Course Vital Signs: Temperature 98.1 F Pulse Rate [Left Brachial] 70 Pulse Rate [Right Brachial] 79 Pulse Rate [Bilateral Radial] 89 Pulse Rate 95 Respiratory Rate 20 Blood Pressure [Right Arm] 132/97 Blood Pressure [Left Arm] 146/70 Blood Pressure 192/87 O2 Sat by Pulse Oximetry 96 Latest Lab Results: Laboratory Last Values WBC 12.1 X10^3/uL (3.6-10.0) H 08/22/16 03:35 RBC 3.52 X10^6/uL (3.5-5.4) 08/22/16 03:35 Hgb 10.8 g/dL (12.0-16.0) L 08/22/16 03:35 Hct 32.6 % (36.0-47.0) L 08/22/16 03:35 MCV 92.6 fL (80.0-100.0) 08/22/16 03:35 MCH 30.8 pg (27.0-34.0) 08/22/16 03:35 MCHC 33.3 g/dL (33.0-35.0) 08/22/16 03:35 RDW 13.3 % (11.6-16.5) 08/22/16 03:35 Plt Count 200 X10^3/uL (150.0-450.0) 08/22/16 03:35 MPV 8.9 fL (7.4-11.0) 08/22/16 03:35 Neut % 62.4 % (42.0-75.0) 08/22/16 03:35 Lymph % 25.4 % (21.0-51.0) 08/22/16 03:35 [place] % 11.0 % (0.0-13.0) 08/22/16 03:35 Eos % 0.9 % (0.9-2.9) 08/22/16 03:35 Baso % 0.3 % (0.2-1.0) 08/22/16 03:35 Neut # 7.5 x10^3/uL (2.2-4.8) H 08/22/16 03:35 Lymph # 3.1 X10^3/uL (1.3-2.9) H 08/22/16 03:35 [place] # 1.3 x10^3/uL (0.3-0.8) H 08/22/16 03:35 Eos # 0.1 x10^3/uL (0.0-0.2) 08/22/16 03:35 Baso # 0.0 X10^3/uL (0.0-0.1) 08/22/16 03:35 Absolute Nucleated RBC 0.1 /100WBC 08/22/16 03:35 INR Target Range - 08/22/16 03:35 INR 1.05 (0.8-1.3) 08/22/16 03:35 Sodium 142 mmol/L (136-145) 08/22/16 03:35 Corrected Sodium 143 mmol/L (136-145) 08/22/16 03:35 Potassium 3.5 mmol/L (3.5-5.1) 08/22/16 03:35 Chloride 106 mmol/L (98-107) 08/22/16 03:35 Carbon Dioxide 25.0 mmol/L (21-32) 08/22/16 03:35 BUN 10 mg/dL (7-18) 08/22/16 03:35 Creatinine 0.82 mg/dL (0.55-1.02) 08/22/16 03:35 Est GFR (MDRD) Af Amer > 60 (>60) 08/22/16 03:35 Est GFR (MDRD) Non-Af > 60 (>60) 08/22/16 03:35 Glucose 139 mg/dL (65-99) H 08/22/16 03:35 Calcium 8.1 mg/dL (8.5-10.1) L 08/22/16 03:35 Corrected Calcium 9.3 mg/dL (8.5-10.1) 08/22/16 03:35 Magnesium 2.6 mg/dL (1.7-2.9) 08/18/16 04:40 Total Bilirubin 0.20 mg/dL (0.2-1.0) 08/22/16 03:35 AST 18 Units/L (15-37) 08/22/16 03:35 ALT 16 Units/L (12-78) 08/22/16 03:35 Alkaline Phosphatase 77 Units/L (46-116) 08/22/16 03:35 Total Protein 6.5 g/dL (6.4-8.2) 08/22/16 03:35 Albumin 2.5 g/dL (3.4-5.0) L 08/22/16 03:35 Globulin 4.0 g/dL (2.5-4.5) 08/22/16 03:35 Albumin/Globulin Ratio 0.6 Ratio (1.1-2.1) L 08/22/16 03:35 Amylase 48 Units/L (25-115) 08/19/16 04:05 Lipase 88 Units/L (73-393) 08/19/16 04:05 Specimen Type Clean catch urine 08/20/16 20:35 Urine Color Yellow (YELLOW) 08/20/16 20:35 Urine Appearance Slightly hazy (CLEAR) 08/20/16 20:35 Urine pH 6.0 (5.0 - 8.0) 08/20/16 20:35 Ur Specific [place] 1.015 (1.000-1.030) 08/20/16 20:35 Urine Protein 2+ (NEGATIVE) 08/20/16 20:35 Urine Glucose (UA) Negative (NEGATIVE) 08/20/16 20:35 Urine Ketones Negative (NEGATIVE) 08/20/16 20:35 Urine Occult Blood 1+ (NEGATIVE) 08/20/16 20:35 Urine Nitrite Negative (NEGATIVE) 08/20/16 20:35 Urine Bilirubin Negative (NEGATIVE) 08/20/16 20:35 Urine Urobilinogen Normal (NORMAL) 08/20/16 20:35 Ur Leukocyte Esterase Negative (NEGATIVE) 08/20/16 20:35 Urine RBC 0-3 /HPF (NEGATIVE) 08/20/16 20:35 Urine WBC 0-3 /HPF (NEGATIVE) 08/20/16 20:35 Ur Squamous Epith Cells Moderate /HPF (NEGATIVE) 08/20/16 20:35 Amorphous Sediment Trace /HPF (NEGATIVE) 08/11/16 22:08 Urine Bacteria 1+ /HPF (NEGATIVE) 08/20/16 20:35 Urine Mucus Moderate /HPF (NEGATIVE) 08/20/16 20:35 Ur Culture Indicated? No/not indicated 08/20/16 20:35 H. pylori IgG Antibody Negative (NEGATIVE) 08/14/16 17:25 Hospital Course: PATIENT IS A 55-YEAR-OLD WHITE FEMALE WHO WAS ADMITTED ON 313 WITH copd EXACERBATION AND NAUSEA AND VOMITING. pATIENT RECEIVED SEVERAL DAYS OF iv HYDRATION AND iv ANTIBIOTICS AND RESPIRATORY THERAPY WITH IMPROVING copd EXACERBATION. pATIENT CONTINUED WITH NAUSEA AND VOMITING AND UNABLE TO HOLD FOOD DOWN. pATIENT WAS TREATED WITH iv pROTONIX WELL ANTINAUSEA MEDICATIONS WITHOUT IMPROVEMENT. pATIENT HAD A ct SCAN OF HER ABDOMEN AND PELVIS WHICH REVEALED RENAL MASS AND ADRENAL MASS WHICH PATIENT HAS KNOWN ABOUT SINCE 2013. pATIENT ALSO HAD AN mri TO FURTHER EVALUATE MASS. pATIENT IS GOING TO FOLLOW-UP WITH dR. lenard LAGUNAS ON OUTPATIENT BASIS FOR BENIGN- APPEARING RENAL MASS. pATIENT ALSO HAD A hida SCAN OF HER GALLBLADDER WHICH REVEALED ABNORMAL EJECTION FRACTURE. pATIENT WAS DIAGNOSED WITH BILIARY DYSKINESIA AND CONTINUED TO NOT TOLERATE SOLID FOOD WITHOUT NAUSEA AND VOMITING. pATIENT WAS UNABLE TO HAVE GALLBLADDER SURGERY EARLIER IN THE WEEK DUE TO BY MOUTH pLAVIX REGIMEN. pLAVIX WAS HELD ON thursday. pATIENT CONTINUED THIS WEEK WITH iv HYDRATION WELL RESPIRATORY TREATMENTS AND PAIN AND NAUSEA CONTROL. pATIENT WAS DISCHARGED TODAY TO BE TRANSFERRED TO [facility] TO THE CARE OF dR. Smith SURGEON. pLANS FOR A LAPAROSCOPIC CHOLECYSTECTOMY PROCEDURE. pATIENT'S CONDITION WAS STABLE ON TRANSFER - Discharge Plan Disposition: [facility] Condition: Stable - Follow ups/Referrals Follow ups/Referrals: BYRON MCADAMS [Primary Care Provider] - - Instructions Instructions: Nausea, Adult, Dehydration, Adult, [id number], Nausea and Vomiting, Adult
== END 2016-08-22 12:00 | disposition short-term general hospital (02) | DRG 202 ==
LOC: MED/SURG 12:18 → OBSVTOIN 08-12 08:00
PROVIDERS: ADMIT Internal Medicine; ATTEND Internal Medicine
PROC: 3E0234Z Introduction of Serum, Toxoid and Vaccine into Muscle, Percutaneous Approach (ICD-10-PCS; principal; 2016-08-11)
PROC: 3E0234Z Introduction of Serum, Toxoid and Vaccine into Muscle, Percutaneous Approach (ICD-10-PCS; 2016-08-11)
DX: J20.8 Acute bronchitis due to other specified organisms (principal); R11.2 Nausea with vomiting, unspecified; E86.0 Dehydration; K82.8 Other specified diseases of gallbladder; R53.1 Weakness; R06.02 Shortness of breath; I10 Essential (primary) hypertension; J44.1 Chronic obstructive pulmonary disease with (acute) exacerbation; I25.10 Atherosclerotic heart disease of native coronary artery without angina pectoris; E11.65 Type 2 diabetes mellitus with hyperglycemia; E78.2 Mixed hyperlipidemia; K21.9 Gastro-esophageal reflux disease without esophagitis; N28.89 Other specified disorders of kidney and ureter; R10.11 Right upper quadrant pain; E87.6 Hypokalemia; R10.13 Epigastric pain; Z23 Encounter for immunization
CPT/HCPCS: 36415; 71010; 71020; 71275; 74177; 74182; 78227; 80053; 81001; 82150; 82550; 82553; 83690; 83735; 84132; 84484; 85025; 85378; 85610; 86140; 86677; 87040; 90686; 93005; 93010; 94640; 94760; 96365; 96374; 96375; 99283; A4222; C9113; 90670; G0378; J1815; J1956; J2060; J2270; J2405; J2550; J3480; J7613; J7626

== ENCOUNTER → 2016-12-30 | Outpatient (CLI) | payer OTHER, MEDICAID ==
--- NOTE | 2016-12-30 15:57 | NM ---
HISTORY: Back pain Study: Nuclear medicine total body bone scan Comparison: None Technique: Patient received intravenous injection of 25.3 millicuries technetium 99 MDP. Images were obtained 3 hours post injection. Findings: There are no significant areas of abnormal tracer concentration in the axial or appendicular skeleto n. IMPRESSION: No significant abnormality identified Reported By:
== END | disposition home or self-care (01) ==
LOC: RAD 09:05
PROVIDERS: ATTEND Nurse Practitioner Family
DX: M95.4 Acquired deformity of chest and rib (principal); M54.89 Other dorsalgia
CPT/HCPCS: 78306